=== PATIENT | male | born 1970 | race Caucasian/White ===

== ENCOUNTER → 2020-08-31 16:49 | Outpatient (CLI) | payer OTHER, SELFPAY ==
[2020-08-31 17:00] LABS: Bacteria 0 SEEN /hpf (None Seen); Mucous, Urine 0 SEEN /hpf (<or=2+); Squamous Epithelial Cells - UA 0 SEEN /hpf (0-5)
[2020-08-31 17:20] LABS: Color, Urine Yellow (Yellow); Glucose, Dipstick Normal (Normal); Ketone-Dipstick Negative (Negative); Leukocyte Esterase-Dipstick 25 /ul (Negative); Nitrite-Dipstick Negative (Negative); Occult Blood-Urine 10 /ul (Negative); Protein-Dipstick Negative (Negative); Urine Bilirubin Dipstick Negative (Negative); Urine Clarity Clear (Clear); Urine Urobilinogen Normal (Normal)
[2020-08-31 17:41] LABS: Red Blood Cells-Urine 0-5 SEEN /hpf (0-5); White Blood Cells 0-5 SEEN /hpf (0-5)
== END ==
PROVIDERS: Referring Provider Nurse Practitioner Adult Health; Visit Provider Nurse Practitioner Adult Health
DX: R31.29 Other microscopic hematuria (principal)
CPT/HCPCS: 81001; 87086

== ENCOUNTER 2021-07-10 11:13 | Outpatient (CLI) | payer OTHER, SELFPAY ==
[2021-07-10 13:54] LABS: PSA,Total - Annual Screen 5.08 ng/mL (0.00-4.00)
== END 2021-07-10 23:59 | disposition short-term general hospital (02) ==
PROVIDERS: Visit Provider Urology
DX: Z12.5 Encounter for screening for malignant neoplasm of prostate (principal)
CPT/HCPCS: 36415; 84153; G0103

== ENCOUNTER 2021-08-20 15:57 | Outpatient (CLI) | payer OTHER, SELFPAY ==
[2021-08-20 17:31] LABS: PSA,Total - Annual Screen 1.39 ng/mL (0.00-4.00)
== END 2021-08-20 23:59 | disposition home or self-care (01) ==
LOC: LAB 15:57
PROVIDERS: Referring Provider Urology; Visit Provider Urology
DX: Z12.5 Encounter for screening for malignant neoplasm of prostate (principal)
CPT/HCPCS: 36415; 84153; G0103

== ENCOUNTER 2021-09-03 11:53 | Outpatient (CLI) | payer OTHER, SELFPAY ==
--- NOTE | 2021-09-03 11:59 | EKG12_ITS ---
Test Reason : PREOP Blood Pressure : / mmHG Vent. Rate : 079 BPM Atrial Rate : 079 BPM P-R Int : 176 ms QRS Dur : 098 ms QT Int : 374 ms P-R-T Axes : 036 -66 031 degrees QTc Int : 428 ms Sinus rhythm with frequent Premature ventricular complexes Left axis deviation Left ventricular hypertrophy Inferior infarct , age undetermined Abnormal ECG Confirmed by [place], [place] ([id number]), editorial specialist RACHID MARTINEZ ([id number]) on 09/04/2021 10:19:04 AM Referred By: Tyrel Ko Confirmed By:[place] CHRISTY MD
[2021-09-03 13:35] LABS: Anion Gap 7 (5-15); BUN 11 mg/dL (7-18); BUN/Creat Ratio 13.4 RATIO (10-20); Calcium,Total 8.7 mg/dL (8.5-10.1); Chloride 103 mmol/L (98-107); Creatinine, Serum 0.82 mg/dL (0.70-1.30); EST Glomerular Filtration Rate 104 mL/min (>60); Est Glom Filt Rate - Afr Amer 126 mL/min (>60); Glucose 105 mg/dL (74-106); Potassium 3.9 mmol/L (3.5-5.1); Sodium Level 138 mmol/L (136-145)
[2021-09-03 13:47] LABS: Hematocrit 44.4 % (40-54); Hemoglobin 16.4 g/dL (13.0-16.5); Mean Corp Hgb Conc 36.9 g/dL (32-36); Mean Corpuscular Hgb 31.8 pg (27.0-32.0); Mean Corpuscular Volume 86.2 fL (80-94); Mean Platelet Vol. 9.7 fl (6.2-12.0); Platelet Count 179 K/mm3 (150-450); RBC Distribution Width CV 12.1 % (11.6-14.6); RBC Distribution Width SD 38.5 fl (35.1-43.9); Red Blood Count 5.15 M/mm3 (4.6-6.2); White Blood Count 5.6 K/mm3 (4.4-11.0)
== END 2021-09-03 23:59 | disposition home or self-care (01) ==
LOC: PSN 11:56 → LAB 12:24
PROVIDERS: Referring Provider Urology; Visit Provider Urology
DX: Z01.810 Encounter for preprocedural cardiovascular examination (principal); Z01.812 Encounter for preprocedural laboratory examination
CPT/HCPCS: 36415; 80048; 85027; 87635; 93005; C9803; U0003; U0005

== ENCOUNTER → 2021-10-17 | Outpatient (CLI) | payer OTHER, SELFPAY ==
--- NOTE | 2021-10-17 11:08 | ECHOD_ITS ---
Reason For Study: Arrhythmia Procedure This was a 2D Doppler, Color Flow transthoracic echocardiogram. The exam was of adequate technical quality. Exam performed in department. Left Ventricle Normal LV size. Left ventricular systolic function is lower limits of normal. The estimated ejection fraction is 50 %. No regional wall motion abnormalities noted. Right Ventricle Normal RV size. Normal systolic function. Atria Normal left atrium. Normal right atrium. No doppler evidence for ASD. Mitral Valve There is no mitral annular calcification. Mild diffuse mitral valve thickening. Mild mitral valve prolapse. Mild (1+) mitral valve insufficiency. Tricuspid Valve Normal tricuspid valve. Mild to moderate (1-2+) tricuspid valve insufficiency. Right ventricular systolic pressure estimated to be 32 mmHg. Aortic Valve Trisinus/trileaflet aortic valve. Normal aortic valve. Pulmonic Valve The pulmonic valve is not well visualized. Trivial pulmonic valve insufficiency. Great Vessels Mildly dilated aortic root. Pericardium/Pleural No pericardial effusion. MMode/2D Measurements & Calculations LVIDd: 5.6 cm IVSd: 1.1 cm LVOT diam: 2.5 cm LVIDs: 4.3 cm LVPWd: 1.0 cm LVOT area: 4.8 cm2 RVDd: 3.4 cm FS: 22.4 % Ao root diam: 4.7 cm LAV(MOD-bp): 60.7 ml LA A4 area: 15.2 cm2 LA dimension: 3.7 cm LAV(MOD-bp) Indexed: 35.9 ml/m2 LAV(MOD-sp2): 75.7 ml LAV(MOD-sp4): 37.5 ml RA A4 area: 14.5 cm2 Time Measurements MV dec time: 0.25 sec Doppler Measurements & Calculations MV E max andrea: 47.2 cm/sec Lat Peak E' Andrea: 5.4 cm/sec Med Peak E' Andrea: 5.9 cm/sec MV A max andrea: 72.0 cm/sec E/E' lat: 8.7 E/E' med: 8.0 MV E/A: 0.66 MV V2 max: 84.1 cm/sec MV P1/2t max andrea: 49.8 cm/sec Ao V2 max: 77.8 cm/sec MV max P.8 mmHg MV P1/2t: 101.7 msec Ao max P.4 mmHg MV V2 mean: 44.6 cm/sec MV dec slope: 143.5 cm/sec2 GUILLERMO(V,D): 4.4 cm2 MV mean P.96 mmHg MV V2 VTI: 27.1 cm MVA(P1/2t): 2.2 cm2 LV V1 max: 71.2 cm/sec PA V2 max: 93.6 cm/sec PI end-d andrea: 102.9 cm/sec LV V1 max P.0 mmHg TR max andrea: 269.4 cm/sec TR max P.0 mmHg ECHO/Echo Complete Interpretation Summary Left ventricular systolic function is lower limits of normal. The estimated ejection fraction is 50 %. Mild diffuse mitral valve thickening. Mild mitral valve prolapse. Mild (1+) mitral valve insufficiency. Mild to moderate (1-2+) tricuspid valve insufficiency. Trivial pulmonic valve insufficiency. Mildly dilated aortic root. Comment: 2D echocardiographic and color-flow Doppler images appear compatible w ith a small high perimembranous ventricular septal defect with predominantly left to right flow. Ordering Physician: Mikie Chaudhari Referring Physician: Modesto Conway Performed By: Fernando Russo RCS
== END | disposition home or self-care (01) ==
LOC: CVS 11:07
PROVIDERS: PCP Family Medicine; Referring Provider Internal Medicine Cardiovascular Disease; Visit Provider Internal Medicine Cardiovascular Disease
DX: Z01.810 Encounter for preprocedural cardiovascular examination (principal); I47.1 Supraventricular tachycardia; Z98.890 Other specified postprocedural states; Q21.0 Ventricular septal defect
CPT/HCPCS: 93225; 93226; 93306

== ENCOUNTER → 2021-10-26 | Outpatient (CLI) | payer OTHER, SELFPAY ==
--- NOTE | 2021-10-26 07:54 | STRESSREP ---
Stress Test Report Date: 10-26-2021 Procedure: Pharmacologic stress nuclear imaging study Indications: Ventricular ectopy; wide-complex tachycardia; PSVT/AVNRT status post EPS/RFA; VSD; preoperative cardiovascular evaluation Consent: Per the patient Procedure: The patient underwent pharmacologic (Regadenoson 0.4mg ) evaluation with a peak heart rate of 100 beats per minute (59%predicted maximal heart rate) and a peak blood pressure of 112/70 mmHg. The baseline ECG demonstrated normal sinus rhythm; poor R wave progression; PVCs. The peak pharmacologic ECG demonstrated no obvious ECG changes. There were occasional PVCs pretest, an isolated ventricular couplet during infusion, occasional PVCs in recovery, and a rare ventricular couplet in recovery. There was no complaint of chest discomfort during pharmacologic infusion or recovery. The examination was discontinued secondary to completion of protocol. Impression: 1. Pharmacologic (Regadenoson) evaluation 2. Peak pharmacologic ECG with. 3. There were no cardiac dysrhythmias pretest, during pharmacologic infusion, or recovery. 4. Nuclear images pending Myocardial perfusion imaging study: Technique: The patient was injected with 11.8 millicuries of technetium 99m Cardiolite and subsequently rest SPECT Cardiolite nuclear imaging was obtained in the horizontal long, vertical long, and short axis views. The patient underwent pharmacologic (Regadenoson) evaluation with a peak heart rate of 100 beats per minute (59% percent predicted maximal heart rate) and a peak blood pressure of 112/70 mmHg. The patient was injected with 33.4 millicuries of technetium 99m Cardiolite and subsequently stress SPECT Cardiolite nuclear imaging was obtained in the horizontal long, vertical long, and short axis views. A gated Cardiolite study at peak stress was obtained. Interpretation: Rest and stress SPECT Cardiolite nuclear imaging status post realignment and normalization demonstrate the appearance of subtle diminished tracer uptake near the apical segments without significant change between rest and stress. There is end systolic thickening and brightening. The gated Cardiolite study demonstrates myocardial thickening and inward wall motion. The reported LVEF is 50%. Impression: 1. Rest and stress SPECT Cardiolite nuclear imaging demonstrate myocardial perfusion changes appearing compatible with physiologic apical thinning with no myocardial perfusion changes considered diagnostic for associated stress-induced myocardial ischemia. 2. The gated Cardiolite study reports an LVEF of 50%. This note was generated with [employer] software. It may contain incorrect words, spelling, and punctuation that were not noted in checking the note before signing.
== END | disposition home or self-care (01) ==
LOC: CVS 06:04
PROVIDERS: PCP Family Medicine; Visit Provider Internal Medicine Cardiovascular Disease
DX: I49.3 Ventricular premature depolarization (principal)
CPT/HCPCS: 78452; 93017; A9500; A4216; J2785

== ENCOUNTER 2021-11-06 17:00 | Emergency (ER) | payer OTHER, SELFPAY ==
[2021-11-06 17:00] VITALS: BP 130/80; PULSE 76; RESP 16; TEMP 36.8; O2SAT 98; BMI 27.4
--- NOTE | 2021-11-06 17:18 | CT_ITS ---
STUDY: CT ABDOMEN AND PELVIS WITHOUT CONTRAST REASON FOR EXAM: Male, 51 years old. left flank pain RADIATION DOSAGE (If Supplied By Facility): CTDIvol = ( 6.46 ) mGy, DLP = ( 312.87 ) mGycm TECHNIQUE: Transaxial images were obtained from the dome of the diaphragm to the symphysis pubis without oral contrast, and without intravenous contrast. Sagittal and coronal images were reconstructed. Individualized dose optimization techniques were used for this CT. COMPARISON: None. FINDINGS: Lung bases clear. Unremarkable liver, spleen, pancreas, adrenals, bilateral kidneys, and gallbladder on this unenhanced study. No radiopaque urolithiasis on either side. No CT evidence of acute appendicitis. Bowel loops nonobstructed. No free air or free fluid. No adenopathy. No abdominal aortic aneurysm. Mild vascular calcification. Sections through the pelvis demonstrate mild fat stranding around the urinary bladder, suspicious for acute cystitis. Prostate normal in size. Tiny fat-containing left inguinal hernia. Multilevel lumbar spondylosis and levoscoliosis. CT/Abdomen/Pelvis without Cont IMPRESSION: Findings suspicious for acute cystitis. Clinical correlation recommended. No radiopaque urolithiasis or hydroureteronephrosis on either side. Electronically Signed: Salvatore Delgado MD at 18:38 EDT ,
--- NOTE | 2021-11-06 17:19 | EX.ED.DYSGE1 ---
HPI History of Present Illness Chief Complaint: Flank Pain Detail of Chief Complaint: Left lower abdomen pain Informant: patient Narrative Narrative: Patient presents with left lower abdomen pain that he has been dealing with off and on for years. Patient states that he seen a urologist and he was supposed to have a procedure on September 07 however he failed his preoperative testing and had to have clearance from cardiology which she did. Patient scheduled again to see urology in 2 days. Patient had severe pain to his left lower abdomen yesterday. Patient does have discomfort currently as well. He has had no nausea or vomiting. He does describe some blood in his urine intermittently. He complains of occasional dysuria. Patient does have history of kidney stones. Prior similar symptoms: Yes [facility] Medical History (Updated 11/06/21 @ 19:[address] Ricco Dickson, ) Abnormal EKG Hypoplasia of aortic arch SVT (supraventricular tachycardia) Ventricular ectopy Ventricular septal defect (VSD), perimembranous Home Medications metoprolol succinate 25 mg tablet,extended release 24 hr 25 mg PO DAILY #30 tab 10/26/21 [Rx Last Taken Unknown] phenazopyridine [Pyridium] 200 mg PO TID #10 tab 11/06/21 [Rx Last Taken Unknown] sulfamethoxazole-trimethoprim 1 tab PO BID #14 tablet 11/06/21 [Rx Last Taken Unknown] Allergy/AdvReac Type Severity Reaction Status Date / Time No Known Allergies Allergy Verified 11/06/21 17:03 Surgical History History of nasal surgery History of radiofrequency ablation procedure for cardiac arrhythmia (~01/17/10) History of repair of congenital cleft palate History of right and left heart catheterization (LHC) (~10/31/09) Social History Smoking Status: Never smoker alcohol intake: current details: occasional substance use type: does not use caffeine: Yes Type: carbonated beverages Number of servings: 3 ROS ROS ED Constitutional Constitutional ED: Reports systems reviewed and no addt'l complaints, except as documented; Denies body ache(s), change in weight or chills Eyes Eyes: Denies acute decrease in peripheral vision, change in vision, double vision or loss of vision ENT ENT ED: Reports none; Denies ear pain, lip swelling, loss taste/smell, neck pain, otalgia or sore throat Cardiovascular Cardiovascular: Reports none; Denies abdominal pain, chest pain with activity, leg edema, lightheadedness, palpitations, rapid heart rate or syncope Respiratory/Chest Respiratory/Chest: Reports none; Denies change in mental status, dry cough, dyspnea, hemoptysis, shortness of breath at rest or shortness of breath with exertion Gastrointestinal Gastrointestinal: Reports none and abdominal pain; Denies change in stool character, diarrhea, hematemesis, hematochezia, melena, rectal bleeding or vomiting Genitourinary Genitourinary ED: Reports none; Denies abdominal discomfort, anuria, dysuria, genital pain or polyuria Musculoskeletal Musculoskeletal: Reports none; Denies arthralgias, back pain, difficulty walking, extremity pain, muscle weakness or myalgias Integumentary Reports none; Denies abscess or rash Neurologic Neurologic: Reports none; Denies abnormal gait, confusion, focal weakness, frequent falls, headache(s), loss of vision, numbness, paresthesias, radicular pain, vertigo or weakness Psychiatric Psychiatric: Reports systems reviewed and no addt'l complaints, except as documented and none; Denies behavioral changes, confusion, difficulty concentrating, hallucinations, suicidal ideation, tactile hallucinations or visual hallucinations Endocrine Endocrinology: Denies none, cold intolerance, excessive sweating, fatigue or heat intolerance Hematologic/Lymphatic Hematologic/Lymphatic: Reports none; Denies anemia, easy bleeding or easy bruising Allergic/Immunologic Allergic/Immunologic ED: Denies as per HPI, none, lip swelling, mouth swelling, throat swelling, tongue swelling or hives EXAM Physical Exam Const Vital Signs: 11/06/21 17:00 Temperature 98.2 F Temperature Source Temporal Pulse Rate 76 Respiratory Rate 16 Blood Pressure 130/80 H Blood Pressure Mean 96 Pulse Ox 98 Oxygen Delivery Method Room Air Positive well nourished and well developed General Appearance ED: well developed and NAD HEENT Reports TM's clear and moist mucous membranes normocephalic and atraumatic; Negative for trauma or tenderness Tympanic Membrane ED: Yes TM's clear Eyes PERRL and EOMs intact bilaterally General Eye ED: Negative for pale conjunctiva or scleral icterus Neck no lymphadenopathy, supple and no JVD General: Negative for tenderness Chest Wall inspection of chest normal and palpation of chest normal Chest: Negative for tenderness Resp normal respiratory effort and clear to auscultation bilaterally Effort and Inspection: Negative for respiratory distress or pain with movement Auscultation: Negative for rhonchi, wheezes or diminished lung sounds Cardio regular rate, regular rhythm, S1 normal heart sound, S2 normal heart sound and no murmurs Peripheral Pulses: pulses 2+ throughout GI normal to inspection, nondistended, normoactive bowel sounds, soft to palpation, non-distended and no masses GI Narrative: Tender to palpation over left lower quadrant and suprapubic region. He had some mild guarding. There is no rebound, rigidity, or peritoneal signs. Back/Spine no CVA tenderness and no thoracic nor lumbar tenderness Extremity normal to inspection General Extremety ED: Negative for edema General Extremity: Negative for edema Neuro oriented x3, CN's II-XII intact bilaterally, no sensory deficits noted and gait normal Sensorium / Orientation: awake, alert, oriented to person, oriented to place and oriented to time Motor Exam: strength 5/5 throughout and strength abnormal Psych mental status grossly normal Skin no rashes or lesions noted and no wounds MDM MDM MDM Narrative Medical decision making narrative: Patient refused IV. Lab work was normal. Patient had a urinalysis that showed 10-25 RBCs and 5-10 WBCs and +1 bacteria. Urine culture was sent. CT scan of the abdomen pelvis was unremarkable other than some inflammatory changes around the bladder suspicious for cystitis. I did start patient on Bactrim as well as Pyridium. Patient has an appointment with his urologist in 2 days. Patient advised to return if worsening pain, fever, vomiting, or condition should worsen anyway. Lab Data Attestation: I reviewed the patient's lab results. Labs: Laboratory Results - last 24 hr 11/06/21 11/06/21 11/06/21 17:25 17:25 18:00 WBC 6.2 RBC 4.92 Hgb 15.4 Hct 42.9 MCV 87.2 MCH 31.3 MCHC 35.9 RDW Std Deviation 40.5 RDW Coeff of Maritza 12.9 Plt Count 187 MPV 9.3 Immature Gran % (Auto) 0.300 Neut % (Auto) 56.2 Lymph % (Auto) 30.1 [place] % (Auto) 11.9 H Eos % (Auto) 1.0 Baso % (Auto) 0.5 Absolute Neuts (auto) 3.5 Absolute Lymphs (auto) 1.85 Nucleated RBC % 0 Sodium 142 Potassium 3.8 Chloride 109 H Carbon Dioxide 29.0 Anion Gap 4 L BUN 13 Creatinine 0.94 Estim Creat Clear Calc 70.19 Est GFR (MDRD) Af Amer 107 Est GFR (MDRD) Non-Af 89 BUN/Creatinine Ratio 13.8 Glucose 102 Calcium 9.4 Urine Color Yellow Urine Clarity Clear Urine pH 5.0 Ur Specific Beltrami 1.025 Urine Protein 30 H Urine Glucose (UA) Normal Urine Ketones Negative Urine Occult Blood 150 H Urine Nitrite Negative Urine Bilirubin Negative Urine Urobilinogen Normal Ur Leukocyte Esterase 25 H Urine RBC 10-25 SEEN Urine WBC 5-10 SEEN Ur Squamous Epith Cells 0-5 SEEN Urine Bacteria 1+ Urine Mucus 1+ Radiography Diagnostic Testing: Clinical Impression(s) from Imaging Studies Abdomen/Pelvis CT 11/06/21 17:18 IMPRESSION: Findings suspicious for acute cystitis. Clinical correlation recommended. No radiopaque urolithiasis or hydroureteronephrosis on either side. Electronically Signed: Salvatore Delgado MD at 18:38 EDT , Discharge Plan Triage Chief Complaint: Flank Pain ED Provider: Ricco Dickson Dx/Rx/DC Orders Clinical Impression: Cystitis, Abdominal pain Instructions: Abdominal Pain, ED Bladder Infection, Male (Adult) Prescriptions: New phenazopyridine [Pyridium] 200 MG tablet 200 mg PO TID Qty: 10 RF: 0 sulfamethoxazole-trimethoprim [sulfamethoxazole-trimethoprim] 1 TABLET tablet 1 tab PO BID Qty: 14 RF: 0 No Action metoprolol succinate 25 mg tablet extended release 24 hr 25 mg PO DAILY Qty: 30 RF: 12 Primary Care Provider: Modesto Conway Referrals: Tyrel Ko MD [STAFF PHYSICIAN] - 2 Days Modesto Conway MD [Primary Care Provider] - Disposition Disposition: Home, Self Care
[2021-11-06 17:39] LABS: Absolute Lymphocyte Count 1.85 X10^3/uL (0.83-4.51); Absolute Neutrophil Count 3.5 X10^3/uL (2.0-7.7); Basophil# 0.03 X10^3/uL; Basophil% 0.5 % (0-1); Eosinophil# 0.06 X10^3/uL; Hematocrit 42.9 % (40-54); Hemoglobin 15.4 g/dL (13.0-16.5); Lymphocyte # 1.85 X10^3/ul (0.83-4.51); Lymphocyte % 30.1 % (19-41); Mean Corp Hgb Conc 35.9 g/dL (32-36); Mean Corpuscular Hgb 31.3 pg (27.0-32.0); Mean Corpuscular Volume 87.2 fL (80-94); Mean Platelet Vol. 9.3 fl (6.2-12.0); Monocyte# 0.73 X10^3/uL; Monocyte% 11.9 % (0-10); NRBC Flagged by Analyzer 0 % (0-5); Neutrophil # 3.46 X10^3/uL (2.7-7.7); Neutrophil % 56.2 % (47-70); Platelet Count 187 K/mm3 (150-450); RBC Distribution Width CV 12.9 % (11.6-14.6); RBC Distribution Width SD 40.5 fl (35.1-43.9); Red Blood Count 4.92 M/mm3 (4.6-6.2); White Blood Count 6.2 K/mm3 (4.4-11.0)
[2021-11-06 17:51] LABS: Anion Gap 4 (5-15); BUN 13 mg/dL (7-18); BUN/Creat Ratio 13.8 RATIO (10-20); Calcium,Total 9.4 mg/dL (8.5-10.1); Chloride 109 mmol/L (98-107); Creatinine, Serum 0.94 mg/dL (0.70-1.30); EST Glomerular Filtration Rate 89 mL/min (>60); Est Glom Filt Rate - Afr Amer 107 mL/min (>60); Estimated Creatinine Clearance 70.19 ml/min; Glucose 102 mg/dL (74-106); Potassium 3.8 mmol/L (3.5-5.1); Sodium Level 142 mmol/L (136-145)
[2021-11-06 18:14] LABS: Color, Urine Yellow (Yellow); Glucose, Dipstick Normal (Normal); Ketone-Dipstick Negative (Negative); Leukocyte Esterase-Dipstick 25 /ul (Negative); Nitrite-Dipstick Negative (Negative); Occult Blood-Urine 150 /ul (Negative); Protein-Dipstick 30 mg/dl (Negative); Specific Gravity, Urine 1.025 (1.002-1.030); Urine Bilirubin Dipstick Negative (Negative); Urine Clarity Clear (Clear); Urine Urobilinogen Normal (Normal)
[2021-11-06 18:22] LABS: Bacteria 1+ /hpf (None Seen); Red Blood Cells-Urine 10-25 SEEN /hpf (0-5); Squamous Epithelial Cells - UA 0-5 SEEN /hpf (0-5); White Blood Cells 5-10 SEEN /hpf (0-5)
[2021-11-06 18:23] LABS: Mucous, Urine 1+ /hpf (<or=2+)
[2021-11-06 18:59] VITALS: BP 138/88; PULSE 88; RESP 17; O2SAT 97
[2021-11-06] MEDS: Smz/Tmp Ds Tablet 1 TABLET PO (19:04)
[2021-11-06] MEDS: Phenazopyridine 95 MG Tablet 190 MG PO (19:04)
== END 2021-11-06 19:09 | disposition home or self-care (01) ==
PROVIDERS: Emergency Provider Emergency Medicine; PCP Family Medicine; Visit Provider Emergency Medicine
DX: N30.91 Cystitis, unspecified with hematuria (principal); Z87.442 Personal history of urinary calculi
CPT/HCPCS: 74176; 80048; 81001; 85025; 87086; 99283

== ENCOUNTER 2021-11-14 13:20 | Day surgery (SDC) | payer OTHER, SELFPAY ==
[2021-11-14] MEDS: Lactated Ringers 1,000 ML 15 ML IV (13:35)
[2021-11-14 13:47] VITALS: BP 118/70; PULSE 53; RESP 18; TEMP 36.9; O2SAT 100; BMI 25.4
--- NOTE | 2021-11-14 14:57 | PCM.HP.STD ---
HPI - General HPI Narrative HUY CHOWDHURY, is a 51 M who presents for a TURBT for a large reddish mass, sessile in the bladder [facility] Medical History (Updated 11/14/21 @ 14:[address] Tyrel Ko MD) Abnormal EKG Alcohol use Cardiology follow-up encounter History of CHF (congestive heart failure) History of echocardiogram History of Holter monitoring History of irregular heartbeat History of stress test Hypertension Hypoplasia of aortic arch Non-smoker Shortness of breath on exertion SVT (supraventricular tachycardia) Ventricular ectopy Ventricular septal defect (VSD), perimembranous Home Medications metoprolol succinate 25 mg tablet,extended release 24 hr 25 mg PO DAILY #30 tab 10/26/21 [Rx Last Taken 11/14/21] ciprofloxacin HCl [Cipro] 500 mg PO BID #6 tab 11/14/21 [Rx Last Taken Unknown] oxycodone-acetaminophen 1 tab PO Q4H PRN 7 Days #20 tab 11/14/21 [Rx Last Taken Unknown] Allergy/AdvReac Type Severity Reaction Status Date / Time sulfamethoxazole Allergy Rash Verified 11/14/21 13:44 [From Sulfamethoxazole-Trimethoprim] trimethoprim Allergy Rash Verified 11/14/21 13:44 [From Sulfamethoxazole-Trimethoprim] Surgical History (Updated 11/13/21 @ 10:52 by Blank Velasquez) History of nasal surgery History of radiofrequency ablation procedure for cardiac arrhythmia (~01/17/10) History of repair of congenital cleft palate History of right and left heart catheterization (LHC) (~10/31/09) Social History Smoking Status: Never smoker alcohol intake: current details: occasional substance use type: does not use caffeine: Yes Type: carbonated beverages Number of servings: 3 Vital Signs Vital Signs Vital Signs: 11/14/21 13:47 Temperature 98.4 F Temperature Source Temporal Pulse Rate 53 L Respiratory Rate 18 Respiratory Pattern Normal Blood Pressure 118/70 Blood Pressure Mean 86 Blood Pressure Source Monitor Blood Pressure Position Semi-Fowlers Blood Pressure Location Left Arm Pulse Ox 100 Oxygen Delivery Method Room Air Weight Weight: 63 kg Body Mass Index (BMI) 25.4
--- NOTE | 2021-11-14 14:57 | PCM.DC ---
Discharge Instructions Diet Discharge Diet: No restrictions Activity Discharge Activity: Return to Normal Activity and May Not Drive (while taking narcotic pain medications.) Dressing / Incision Call your doctor if you observe: Fever of 101 or Higher Follow Up Care Please Follow Up With: Tyrel Ko MD When: Call [phone] for an appointment Test Results: Test results from this visit will be discussed in further detail at your follow-up appointment, if applicable. Discharge Plan Admission Primary Reason for Your Visit: TURBT Attending Provider: Tyrel Ko Primary Care Provider: Modesto Conway Discharge Orders/Prescriptions Prescriptions: New ciprofloxacin HCl [Cipro] 500 mg tablet 500 mg PO BID Qty: 6 RF: 0 oxycodone-acetaminophen 5-325 mg tablet 1 tab PO Q4H PRN (Reason: pain) 7 Days Qty: 20 RF: 0 Continued metoprolol succinate 25 mg tablet extended release 24 hr 25 mg PO DAILY Qty: 30 RF: 12 Referrals / Follow Up: Tyrel Ko MD [STAFF PHYSICIAN] - Modesto Conway MD [Primary Care Provider] - Disposition Disposition (needs filled in before D/C Order can be placed): Home, Self Care
[2021-11-14] MEDS: Cefazolin 2 GM in 0.9% Normal Saline 100 ML IV (15:04)
--- NOTE | 2021-11-14 15:46 | OP.PCM_ITS ---
Report of Operation Date of Procedure: 11/14/21 Pre-Operative Diagnosis: Reddish flat area in the back of the bladder pretty ex tensive Post-Operative Diagnosis: The same Surgery/Procedure Performed:: Transurethral resection of the bladder large Description of Surgical Findings:: Indication is a 51-year-old male has chronic pain in the bladder on cystoscopy was found to have like a reddish flat area in the black of the bladder concerning for carcinoma in situ today again taken to surgery to resect this area and cauterize a whole area extensively. Patient was taken back to the operating room at the smooth induction of general anesthesia he was placed in dorsolithotomy position. Went of the bladder with the cystoscope I then identified the right ureteral orifice and then the left ureter orifice the ureter left ureteral orifice appeared to been resected back and open in the back of the bladder looks pretty reddish very friable looking mucosa was certainly not normal little biopsies were taken to get tissue without cauterization and then using the cautery and resectoscope and I cauterized extensively in the back of the bladder to try to get the whole area cauterized completely extremely friable bladder if he does not have cancer place carcinoma in situ or may have interstitial cystitis would be the other differential diagnosis. After asked extensively cauterizing this area then I was able to control hemostasis but I will have him sent home with a catheter 20 Vincentian catheter let the bladder heal we will see him next week to remove the catheter and review the tissue report. Surgeon: joseph Type of Anesthesia: General Drains: 20 fr ramos Admit VTE Documentation VTE Present on Admission: No VTE Mechan Device Prophylaxis: SCD's VTE Pharm Prophylaxis ordered?: No
--- NOTE | 2021-11-14 15:50 | BLA_PTH ---
PATIENT: HUY CHOWDHURY [place] [facility] [place][id number] AGE/SX: 51/M ROOM: RE11/14/[address]: Dr. Tyrel Ko MD : [id number] BED: DIS: 11/14/2021 SPEC #: [id number] RECD: 11/14/21 16:57 STATUS: LUCIO ZAMORA #: [id number] KRAIG: 11/14/21 15:[address]: Tyrel Ko DEPT: SURGICAL PATHOLOGY RECD BY: Tran Fernández ENTERED: 11/15/21 07:34 SP TYPE: BLADDER BX OTHR DR: Dr. Modesto Conway MD Tissues: Urinary bladder, NOS Procedures: Surgery Specimen Level IV HEADER OPERATION: Cysto, transurethral resection bladder, [employer] PRE-OP DIAGNOSIS: Bladder mass TISSUE SUBMITTED: Bladder biopsy MICROSCOPIC DIAGNOSIS Bladder, biopsy: Fragments of urothelial mucosa with chronic inflammation and granulation tissue reaction. Negative for malignancy. See comment. SJ:rajeev 11/16/2021 COMMENT Epithelium is denuded in most of the specimen. Clinical correlation and appropriate follow up are necessary. MICROSCOPIC DESCRIPTION Slides are reviewed. GROSS DESCRIPTION Received in fixative is one container labeled with the patient's name and designated bladder biopsy. The specimen consists of three irregular fragments of light shahid soft tissue that in aggregate measure 0.5 x 0.2 x 0.1 cm. The specimen is totally submitted in one cassette. / SUSAN:rajeev 11/15/2021 TC:3 CPT: 64763
[2021-11-14 16:00] VITALS: BP 118/70; BP 147/98; PULSE 110; RESP 18; TEMP 36.4; O2SAT 100
[2021-11-14] MEDS: Ketorolac 15 MG/ML Vial IV (16:08)
[2021-11-14 16:15] VITALS: BP 118/70; BP 162/98; PULSE 95; RESP 16; O2SAT 99
[2021-11-14 16:30] VITALS: BP 118/70; BP 140/76; PULSE 90; RESP 16; O2SAT 97
[2021-11-14 16:51] VITALS: BP 118/70; BP 143/93; PULSE 86; RESP 16; TEMP 36.7; O2SAT 96
[2021-11-14 17:15] VITALS: BP 118/70; BP 143/87; PULSE 91; RESP 16; TEMP 36.7; O2SAT 98
[2021-11-14] MEDS: oxyCODONE 5 MG Tablet PO (17:28)
== END 2021-11-14 17:57 | disposition home or self-care (01) ==
LOC: SDC 13:21 → AC 13:22
PROVIDERS: PCP Family Medicine; Referring Provider Urology; Visit Provider Urology
PROC: 0TBB8ZZ Excision of Bladder, Via Natural or Artificial Opening Endoscopic (ICD-10-PCS; CPT 52601; principal; 2021-11-14 15:40)
DX: N41.0 Acute prostatitis (principal); R31.21 Asymptomatic microscopic hematuria; D30.3 Benign neoplasm of bladder; I10 Essential (primary) hypertension; G89.29 Other chronic pain
CPT/HCPCS: 52601; 00914; 88305; J7120; J2405

== ENCOUNTER → 2022-12-30 | Outpatient (CLI) | payer OTHER, SELFPAY ==
[2022-12-30 17:17] LABS: PSA,Total - Annual Screen 1.94 ng/mL (0.00-4.00)
== END | disposition home or self-care (01) ==
PROVIDERS: PCP Family Medicine; Referring Provider Urology; Visit Provider Urology
DX: Z12.5 Encounter for screening for malignant neoplasm of prostate (principal); N40.1 Benign prostatic hyperplasia with lower urinary tract symptoms
CPT/HCPCS: 36415; 84153; 87086; G0103

== ENCOUNTER → 2023-07-29 | Outpatient (CLI) | payer OTHER, SELFPAY ==
[2023-07-29 16:08] LABS: Hematocrit 46.4 % (40-54); Hemoglobin 16.5 g/dL (13.0-16.5); Mean Corp Hgb Conc 35.6 g/dL (32-36); Mean Corpuscular Hgb 30.9 pg (27.0-32.0); Mean Corpuscular Volume 86.9 fL (80-94); Mean Platelet Vol. 9.6 fl (6.2-12.0); Platelet Count 182 K/mm3 (150-450); RBC Distribution Width CV 13.4 % (11.6-14.6); RBC Distribution Width SD 41.7 fl (35.1-43.9); Red Blood Count 5.34 M/mm3 (4.6-6.2); White Blood Count 5.8 K/mm3 (4.4-11.0)
[2023-07-29 17:20] LABS: ALB/GLOB Ratio 0.9 RATIO (0.9-2.4); AST(SGOT) 20 U/L (15-37); Alanine Aminotransfer ALT/SGPT 24 U/L (16-61); Albumin, Serum 3.8 g/dL (3.2-5.0); Alkaline Phosphatase 82 U/L (45-117); Anion Gap 4 (5-15); BUN 10 mg/dL (7-18); BUN/Creat Ratio 10.8 RATIO (10-20); Calcium,Total 9.3 mg/dL (8.5-10.1); Chloride 108 mmol/L (98-107); Creatinine, Serum 0.92 mg/dL (0.70-1.30); EST Glomerular Filtration Rate 90 mL/min (>60); Est Glom Filt Rate - Afr Amer 109 mL/min (>60); Globulin 4.1 g/dL (2.2-4.2); Glucose 90 mg/dL (74-106); Magnesium 2.3 mg/dL (1.6-2.6); Potassium 3.8 mmol/L (3.5-5.1); Protein, Total 7.9 g/dL (6.4-8.2); Sodium Level 142 mmol/L (136-145); Thyroid Stim Hormone (TSH) 2.03 uIU/mL (0.358-3.74)
--- OUTSIDE RECORDS SUMMARY | 2023-07-29 19:59 | XMS RPT_ITS | CCD ---
Author Name Unknown Address [address] [place] [address] Organization [facility] Care Team Providers Care Combined Rail Operator Name Role Phone Louis Conway Primary Care Provider [phone] Unavailable Primary Care Provider UnavailROXANNE Ardon Attending Unavailable Louis Conway MD Unavailable Stefani RIVER, Dr. Sarah ([facility]) Unavailable [facility] Surgeons Unavailable [facility] Unavailable [phone] [facility] Cardiology Unavailable [phone] Dr. Mayco Lima DO Unavailable Dr. Jarret Thomas MD Unavailable Yousuf COMPUTER SECURITY COORDINATOR, Cha Betancur Unavailable Unavailable Doug RIVER, Ron Fernando Unavailable Mo COMPUTER SECURITY COORDINATOR, Janis Unavailable Unavailable Love RUSHING, Mee Fernando Unavailable Unavaila ble Rohit COMPUTER SECURITY COORDINATOR, Julieth Unavailable Unavailable Meng COMPUTER SECURITY COORDINATOR, Edgar Unavailable Unavailable Tony PANDEY, Julieth Walls Unavailable Aki COMPUTER SECURITY COORDINATOR, Lily Castanon Unavailable Unavailab yessenia Nunez COMPUTER SECURITY COORDINATOR, Dipti Unavailable Unavailab le Sonia COMPUTER SECURITY COORDINATOR, Jenny Unavailable Unavailabl e Bina COMPUTER SECURITY COORDINATOR, Anju Unavailable Unavailable Unavailable Unavailable CARLOS PRETTY MD Admitting Unavailable CARLOS PRETTY MD Primary Care Unavailable CARLOS PRETTY MD Attending Unavailable LOUIS CONWAY Consulting Unavailable LOUIS CONWAY Referring Unavailable PROVIDER, UNKNOWN Consulting Unavailable PROVIDER, UNKNOWN Consulting Unavailable PROVIDER, UNKNOWN Consulting Unavailable GUILLE FREIRE Admitting Unavailable GUILLE FREIRE Primary Care Unavailable GUILLE FREIRE Attending Unavailable LOUIS CONWAY Consulting Unavailable PROVIDER, UNKNOWN Consulting Unavailable PROVIDER, UNKNOWN Consulting Unavailable PROVIDER, UNKNOWN Consulting Unavailable Allergies Allergy Classification Reported Allergen(s) Allergy Type Date of Onset Reaction(s) Facility (1 source) Sulfonamides (Antibiotic) Drug Allergy 04-08-2023 Rash [facility] Work Phone: (1 source) Sulfonamides (Antibiotic) Drug allergy (disorder) [facility] Repository Medications Current Medications Medication Drug Class(es) Dates Sig (Normalized) Sig (Original) acetaminophen 325 mg / HYDROcodone bitartrate 5 mg oral tablet (1 source) Opioid Agonist Start: 12-08-2020 End: 12-13-2020 HYDROcodone-acetami nophen (NORCO) 5-325 MG per tablet Indications: Post-op pain Take 1 tablet by mouth every 6 hours as needed for Pain for up to 5 days. Intended supply: 5 days. Take lowest dose possible to manage pain 20 tablet 0 12/08/2020 12/13/2020 Active ALPRAZolam 0.25 mg disintegrating oral tablet (1 source) Benzodiazepine Start: 12-08-2020 ALPRAZolam (NIRAVAM) dissolvable tablet 0.25 mg calcium chloride 0.0014 meq/ml / potassium chloride 0.004 meq/ml / sodium chloride 0.103 meq/ml / sodium lactate 0.028 meq/ml injectable solution (1 source) Start: 12-08-2020 lactated ringers infusion cefdinir 300 mg oral capsule (1 source) Cephalosporin Antibacterial Start: 12-08-2020 End: 12-18-2020 take 1 capsule by mouth twice daily cefdinir (OMNICEF) 300 MG capsule Take 1 capsule by mouth 2 times daily for 10 days 20 capsule 0 12/08/2020 12/18/2020 Active 1 ml diphenhydrAMINE hydrochloride 50 mg/ml cartridge (1 source) Histamine-1 Receptor Antagonist Start: 12-08-2020 End: 12-08-2020 diphenhydrAMINE (BENADRYL) injection 12.5 mg 2 ml fentaNYL 0.05 mg/ml injection (2 sources) Opioid Agonist Start: 12-08-2020 fentaNYL (SUBLIMAZE) injection 50 mcg Completed/Discontinued Medications Medication Drug Class(es) Dates Sig (Normalized) Sig (Original) acetaminophen 500 mg oral tablet (1 source) Start: 12-08-2020 End: 12-08-2020 acetaminophen (TYLENOL) tablet 1,000 mg 24 hr alfuzosin hydrochloride 10 mg extended release oral tablet (6 sources) alpha-Adrenergic Abner Start: 03-08-2023 take 1 tablet by mouth once alfuzosin SR (UROXATRAL) 10 mg 24 hr tablet Take 1 tablet by mouth every afternoon. 0 03/08/2023 Active Problems Active Problems Problem Classification Problem Date Documented Date Episodic/Chronic Acute bronchitis (10 sources) Acute bronchitis; Translations: [Acute bronchitis, unspecified] 11-05-2019 Episodic Cardiac and circulatory congenital anomalies (1 source) Ventricular septal defect; Translations: [Ventricular septal defect] Onset: 08-18-2009 08-18-2009 Chronic Cardiac dysrhythmias (20 sources) Cardiac arrhythmia; Translations: [Cardiac arrhythmia, unspecified] 08-20-2022 Chronic Chronic obstructive pulmonary disease and bronchiectasis (10 sources) Bronchitis; Translations: [Bronchitis, not specified as acute or chronic] 11-23-2019 Episodic Contraceptive and procreative management (20 sources) Patient encounter status; Translations: [Encounter for sterilization] Onset: 01-26-2010 01-26-2010 Episodic Genitourinary symptoms and ill-defined conditions (11 sources) Increased frequency of urination; Translations: [Frequency of micturition] 04-08-2023 Episodic Heart valve disorders (15 sources) Heart murmur; Translations: [Cardiac murmur, unspecified] 08-20-2022 Episodic Hyperplasia of prostate (20 sources) Benign prostatic hypertrophy with outflow obstruction; Translations: [Benign prostatic hyperplasia with lower urinary tract symptoms] Onset: 05-25-2009 05-25-2009 Chronic Immunizations and screening for infectious disease (10 sources) Requires diphtheria, tetanus and pertussis vaccination; Translations: [Encounter for immunization] 08-20-2022 Episodic Malaise and fatigue (10 sources) Fatigue; Translations: [Other fatigue] 08-20-2022 Episodic Other acquired deformities (15 sources) Scoliosis deformity of spine; Translations: [Scoliosis, unspecified] 08-20-2022 Chronic Other diseases of bladder and urethra (2 sources) Bladder neck obstruction; Translations: [Bladder-neck obstruction] Onset: 05-25-2009 04-08-2023 Chronic Other nervous system disorders (1 source) Postoperative pain ; Translations: [Other acute postprocedural pain] Episodic Other nutritional; endocrine; and metabolic disorders (10 sources) Overweight in adulthood with body mass index of 25 or more but less than 30; Translations: [Body mass index (BMI) 27.0-27.9, adult] 08-20-2022 Episodic Other skin disorders (20 sources) Skin lesion; Translations: [Disorder of the skin and subcutaneous tissue, unspecified] 12-01-2019 Episodic Other skin disorders (10 sources) Skin tag; Translations: [Other hypertrophic disorders of the skin] 11-23-2019 Episodic Residual codes; unclassified (10 sources) Influenza vaccination declined; Translations: [Immunization not carried out because of patient refusal] 08-20-2022 Episodic Unclassified (5 sources) Follow up for chronic condition - The patient is here for follow-up of other condition(s) (BPH). The patient always takes the prescribed medications. No side effects noted. The patient has an active lifestyle but no regular exercise program. The patient's out of office blood pressure checks occur rarely. The patient states that there is no recent angina or dyspnea and they do not have headaches. Note for Chronic condition follow-up : medication has helped, rarely has any pain. reviewed by [facility] 05-05-2020 Unclassified (5 sources) Follow up for chronic condition - The patient is here for follow-up of other condition(s) (Urinary frequency). The patient always takes the prescribed medications. No side effects noted. Note for Chronic condition follow-up : Taking tamsulosin. Unsure how much improvment he has seen. Will had good days and bad days. reviewed by [facility] 11-05-2019 Past or Other Problems Problem Classification Problem Date Documented Date Episodic/Chronic Other lower respiratory disease (1 source) Dyspnea; Translations: [Dyspnea, unspecified] Onset: 09-21-2009 09-21-2009 Episodic Unclassified (5 sources) Well adult male - The patient feels well with no complaints. The patient has a balanced diet. The patient does not exercise. The patient sleeps 6 hours per night. Note for Well adult male : reviewed by B 08-20-2022 Unclassified (5 sources) Frequent urination - Has had frequent urination for the past 12 years and has been getting worse. Asking for urology referral. 08-22-2020 Unclassified (5 sources) Skin Lesion - The skin lesion appeared rapidly and has been occurring for weeks. It has been increasing in size. The lesion is characterized as brown. The lesion is located on the upper extremity (right shoulder). Note for Skin lesion : reviewed by [facility] 11-24-2019 Unclassified (5 sources) Cold Symptoms - Symptoms include runny nose, dry cough and productive cough, but do not include ear pain, sore throat, fever, chills, general malaise or headache. The onset was gradual 3 week(s) ago. The symptoms occur constantly. The patient describes this as moderate in severity and unchanged. Current treatment includes non-prescription cold medication. Risk factors do not include smoking. The patient has not been exposed to an individual with a cough, an individual with an upper respiratory infection, an individual with similar symptoms, an individual with strep or secondhand smoke. Patient denies history of seasonal allergies, recurrent sinusitis, recurrent strep pharyngitis, asthma, tonsillectomy or recurrent ear infections. Note for Upper respiratory infection : leaving for [place] next weekend 2019 Unclassified (5 sources) Skin Lesion - The skin lesion appeared gradually and has been occurring for 6 months. It has been increasing in size. The lesion is characterized as brown. Note for Skin lesion : Located on left shoulder.Also has a large skin tag R axilla that gets painful and itchy 02-23-2019 Unclassified (5 sources) Urinary frequency - Urinary frequency for several months and getting worse. No pain. Gets up a couple of times at night. No increased thirst. 02-10-2018 Unclassified (5 sources) Back pain - The course has been increasing. The pain radiates to the right thigh (and leg will go numb.). Note for Back pain : Pt born with Scoliosis and has just recently flared up. Has been seeing Dr. Hollingsworth who gave him some Meloxicam but pt rarely uses that. He is here today because he would like to see Portrait Consultant. X-rays done per Dr. Hollingsworth 07/21/17. Pain is in entire back - all the way down the Spinal cord. ANything/ any movment seems to aggraate the pain. reviewed by [facility] 10-10-2017 Unclassified (5 sources) Cold Symptoms - Symptoms include nasal congestion, runny nose, productive cough, fever (hasn't checked temp), chills and general malaise, but do not include ear pain or sore throat. The onset was gradual 4 day(s) ago. The symptoms occur constantly. The patient describes this as moderate in severity and worsening. Current treatment includes non-prescription cold medication (nyquil). The patient has not been exposed to an individual with similar symptoms. Patient denies history of seasonal allergies, recurrent sinusitis, recurrent strep pharyngitis, asthma, tonsillectomy or recurrent ear infections. 08-31-2014 Unclassified (5 sources) Fatigue - The onset of the fatigue has been gradual and has been occurring in an intermittent pattern for 2 months. The course has been increasing. The fatigue occurs all the time. The symptoms have been associated with chest pain (This morning) and excessive sleeping. Note for Fatigue : Sx are not present daily, feels he sleeps well. weight and appetite are intact.Unrelated he has had an ablation in the past and is due for cadriology follow up with Dr Heck at [facility] 04-12-2014 Results Test Name Value Interpretation Reference Range Facil ity Vital Signs Date Time Vital Sign Value Performing Clinician Faci lity 04-08-2023 12:59-0400 Body height 157.5 cm [employer] PA-C Work Phone: [facility] 04-08-2023 12:59-0400 Body weight 67.04 kg [employer] PA-C Work Phone: [facility] 04-08-2023 12:59-0400 Diastolic blood pressure 82 mm[Hg] Roxanne Hills PA-C Work Phone: [facility] 04-08-2023 12:59-0400 Heart rate 91 /min Roxanne Hills PA-C Work Phone: [facility] 04-08-2023 12:59-0400 SaO2% (BldA) [Mass fraction] 97 % Roxanne Hills PA-C Work Phone: [facility] 04-08-2023 12:59-0400 Systolic blood pressure 112 mm[Hg] Roxanne Hills PA-C Work Phone: [facility] 08-20-2022 13:15-0400 Body weight 68.95 kg Edgar Fan LPN [facility] 08-20-2022 13:15-0400 Diastolic blood pressure 82 mm[Hg] Edgar Fan LPN [facility]. Encounters Encounter Date Encounter Type Care Provider Facility Start: 06-19-2023 End: 06-19-2023 Telephone follow-up Louis Conway MD [facility] Start: 06-18-2023 End: 06-18-2023 Emergency department patient visit CARLOS RIVER [facility] Start: 04-08-2023 End: 04-08-2023 ambulatory ROXANNE HILLS Facility:[facility] Start: 04-08-2023 End: 04-08-2023 Patient encounter procedure Roxanne Hills PA-C Work Phone: Urology Procedures Date Procedure Procedure Detail Performing Clinician Start: 04-08-2023 Urnls dip stick/tabl et rgnt auto w/o microscopy Roxanne Hills PA-C Work Phone: Start: 01-24-2023 End: 01-24-2023 Screening colonoscopy Edgar Fan LPN Plan of Treatment Date Care Activity Detail Author Start: 08-20-2032 Urine microalbumin profile DTaP,Tdap,Td Vaccine (2 - Td or Tdap) [facility] Start: 02-07-2023 Influenza vaccination Influenza Vaccine (#1) [facility] Start: 06-09-2022 Depression Assessment Depression Assessment [facility] Start: 02-07-2021 Influenza vaccination [facility] Work Phone: Start: 12-14-2020 End: 12-14-2020 Patient encounter procedure 12/14/2020 Office Visit Otolaryngology Ilir Holm MD [address] [place] [address] [phone] [facility] Start: 12-08-2020 End: 12-08-2020 Patient encounter procedure 12/08/2020 Appointment General Surgery Ilir Holm MD [address] [place] [address] [phone] [facility] General Surgery Start: 06-27-2019 Lipid 1996 panel - Serum or Plasma Lipid Screening [facility] Start: 2018 Screening for malignant neoplasm of colon Colon cancer screen colonoscopy [facility] Work Phone: Start: 2018 Shingles Vaccine (1 of 2) Shingles Vaccine (1 of 2) [facility] Work Phone: Start: 2018 Shingrix Vaccine (1 of 2) Shingrix Vaccine (1 of 2) [facility] Start: 06-27-2017 Diabetes Screening Diabetes Screening [facility] Start: 2013 Cologuard (FIT-DNA) Cologuard (FIT-DNA) [facility] Start: 2013 Colonoscopy Colonoscopy [facility] Start: 2013 Colorectal Cancer Screening Colorectal Cancer Screening [facility] Start: [address] Colonography [facility] Start: 2013 Fecal Occult Blood Fecal Occult Blood [facility] Start: 2013 Sigmoidoscopy Sigmoidoscopy [facility] Start: 2008 Diabetes screen Diabetes screen [facility] Work Phone: Start: 2008 Lipid panel Lipid screen [facility] Work Phone: Start: 08-20-1987 DTaP/Tdap/Td vaccine (1 - Tdap) DTaP/Tdap/Td vaccine (1 - Tdap) [facility] Work Phone: Start: 1986 Hepatitis C Screening Hepatitis C Screening [facility] Start: 1986 HIV Screening HIV Screening [facility] Start: 08-20-1983 HIV screening HIV screen [facility] Work Phone: Start: 1980 COVID-19 Vaccine (1) COVID-19 Vaccine (1) [facility] Work Phone: Start: 02-19-1969 Covid-19 Vaccine (#1) Covid-19 Vaccine (#1) [facility] Start: 1968 Hepatitis B Vaccine (1 of 3 - 3-dose series) Hepatitis B Vaccine (1 of 3 - 3-dose series) [facility] Start: 1968 Hepatitis C screening Hepatitis C screen [facility] Work Phone: Blood glucose - POCT [facility] Work Phone: Immunizations Immunization Date Immunization Notes Care Provider Fa gina 08-20-2022 tetanus toxoid, redu germaine diphtheria toxoid, and acellular pertussis vaccine, adsorbed Louis Conway MD [facility] Phone: [facility] Payers Date Payer Category Payer Unknown [id number] 2020 Unknown [id number] 1968 Unknown [id number] 1968 Unknown [id number] Social History Date Type Detail Facility Start: 12-04-2020 End: 04-08-2023 Tobacco smoking status NHIS Never smoker [facility] Work Phone: Start: 12-04-2020 End: 04-08-2023 Tobacco use and exposure Never used [facility] Start: 12-04-2020 End: 04-08-2023 Alcohol intake Current drinker of alcohol (finding) [facility] Work Phone: Start: 12-04-2020 End: 04-08-2023 [facility] Start: 12-04-2020 [facility] Comment [facility] Work Phone: Start: 1970 Sex Assigned At Not on file [facility] Work Phone: Exposure to SARS-CoV -2 (event) Not sure [facility] Start: 04-08-2023 Tobacco use panel [facility] National Score (1-100), lower number is lower risk 80 [facility] Start: 04-08-2023 Alcohol Comment daily beer [facility] Alcohol Use: Alcohol Use: ; Occasional alcohol use. [employer] Current Work/Study Status: Current Work/Study Status: ; Full-time. [employer] Exercise History: Exercise Histo ry: ; Moderate. 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 [employer]; [employer] Tobacco Use: Tobacco Use: ; N ever smoker. 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 Author Type: Physician Sap Architect Type: Progress Notes Filed: 04/08/2023 7:46 PM Note Text: [facility] NEW PATIENT CLINIC NOTE SERVICE DATE: 04/08/2023 SERVICE TIME: 1:29 PM NAME: Linden Wood CHIEF COMPLAINT: 2nd Opinion for Urinary Symptoms HISTORY OF PRESENT ILLNESS: Linden Wood is a 52 year old male presenting as an established patient for 2nd Opinion for Urinary Symptoms The patient reports he has pain with a full bladder and recently saw Dr. Ko for a Cystoscopy and had a bladder tumor removed That showed chronic inflammation and bladder and bladder had tran irritation Given he already has a Urologist with Dr. Ko who knows his situation and recommend he continue his follow ups with him. LUTS: DYSURIA: yes URGENCY: Yes FREQUENCY:7 per day NOCTURIA: 2 per night STRAINING TO VOID: No EMPTIES COMPLETELY: Yes UTI: No GROSS HEMATURIA: no UA DIPSTICK POSITIVE ONLY: no Other symptoms: LABS: No results found for: TESTOST No results found for: TESTFREE No results found for: PSA Hematocrit (%) Date Value 06/27/2014 45.2 01/17/2010 44.9 09/20/2009 44.1 No results found for: PSA Creatinine Date Value Ref Range Status 06/27/2014 0.91 0.70 - 1.40 mg/dL Final 01/17/2010 0.87 0.70 - 1.40 mg/dL Final 11/23/2009 0.86 0.70 - 1.40 mg/dL Final 09/20/2009 0.90 0.70 - 1.40 mg/dL Final MEDICATIONS: alfuzosin SR (UROXATRAL) 10 mg 24 hr tablet Take 1 tablet by mouth every afternoon. metoprolol succinate (TOPROL XL ORAL) Take by mouth once daily. PAST MEDICAL HISTORY: PAST MEDICAL HISTORY Diagnosis Date Cleft palate Enlarged prostate Essential hypertension Heart murmur PAST SURGICAL HISTORY: PAST SURGICAL HISTORY Procedure Laterality Date LAP HERNIA REPAIR W/MESH REPAIR PALATE TRANSURETHRAL ELEC-SURG PROSTATECTOM 11/14/2021 [facility] FAMILY HISTORY: FAMILY HISTORY Problem Relation Age of Onset other (interstitial cystitis) Sister SOCIAL HISTORY: Social Connections: Not on file REVIEW OF SYSTEMS: GENERAL: No fever, chills, weight loss, or fatigue. ENMT: Negative CARDIOVASCULAR:NO CHEST PAIN, PALPITATIONS, ANKLE EDEMA RESPIRATORY: No chronic cough, wheezing, dyspnea, hemoptysis. GENITOURINARY: SEE HPI MUSCULOSKELETAL:NO CHRONIC BACK PAIN, ARTHRITIS, CHRONIC NECK PAIN SKIN: NO VARICOSE VEINS, RASH, ABNORMAL ITCHING HEME/LYMPH/IMMUNE:Negative for prolonged bleeding, bruising easily or swollen nodes NEUROLOGICAL: NO HEADACHES, NUMBNESS, SEIZURES, STROKE DIABETES: no All other systems reviewed and are negative PHYSICAL EXAMINATION: Blood pressure 112/82, pulse 91, height 157.5 cm (5' 2 ), weight 67 kg (147 lb 12.8 oz), SpO2 97 %. GENERAL: WNL nutrition, no deformities, healthy appearing NEURO: Awake, alert and oriented x 3 and Normal gait PSYCH: No signs of depression, anxiety, or agitation ENMT (Ear, Nose, Mouth, Throat): No masses, adenopathy, icterus. Thyroid nonpalpable RESP: NL effort, no retractions or purse-lip breathing. CV: No extremity swelling, varices, edema, pallor, erythema GASTROINTESTINAL: Soft, nontender, nondistended, no masses. HERNIAS: None SKIN: No rash, lesions No palpable lymphadenopathy MUSCULOSKELETAL: Extremities normal. No deformities, edema, clubbing or skin discoloration. PROBLEM LIST REVIEW: Yes LABS: Results for orders placed or performed in visit on 04/08/23 UA DIP, URINE (POC) Result Value Ref Range GLUCOSE UA (POCT) Negative Negative mg/dL BILIRUBIN UA (POCT) Negative Negative KETONE UA (POCT) Negative Negative mg/dL SPECIFIC GRAVITY UA (POCT) 1.020 1.005 - 1.030 HEMOGLOBIN/BLOOD UA (POCT) Trace-intact (A) Negative PH UA (POCT) 5.5 4.5 - 8.0 PROTEIN UA (POCT) Negative Negative mg/dL UROBILINOGEN UA (POCT) 0.2 Normal E.U./dL NITRITE UA (POCT) Negative Negative LEUKOCYTES UA (POCT) Negative Negative COLOR UA (POCT) Yellow CLARITY UA (POCT) Clear PROCEDURES: PVR: 0 ml IMAGING: [facility] - in [facility] database IMPRESSION/PLAN: 52 year old male with 1. Urinary frequency - ICD9: 788.41, ICD10: R35.0 (primary diagnosis) 2. 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 Ko I spent a total of 30 minutes on the date of the service which included preparing to see the patient, face to face patient care, completing clinical documentation, obtaining and/or reviewing separately obtained history, performing a medically appropriate examination, counseling and educating the patient/family/caregiver, ordering medications, tests, or procedures, and care coordination. Roxanne Hills, KATELYNS, MT, PA-C [facility] Progress note 04-08-2023 Note Date & Type Note Facility 04-08-2023 Note HNO ID: [id number] Author: JAREK Macias Laurie Service: ? Author Type: ? Type: Progress Notes Filed: 04/08/2023 7:46 PM Note Text: Patient's post-void bladder scan: 0 ML. Adriane Macias MA [facility] History of Present illness Narrative 04-08-2023 Roxanne Hills PA-C - 04/08/2023 1:28 PM GRACIETHiJAREK win Laurie - 04/08/2023 1:05 PM EDT Note Date & Type Note Facility 04-08-2023 History of Presen t illness Narrative Images from the original note were not included. [facility], [facility] [facility] NEW PATIENT CLINIC NOTE SERVICE DATE: 04/08/2023 SERVICE TIME: 1:29 PM NAME: Linden Wood CHIEF COMPLAINT: 2nd Opinion for Urinary Symptoms HISTORY OF PRESENT ILLNESS: Linden Wood is a 52 year old male presenting as an established patient for 2nd Opinion for Urinary Symptoms The patient reports he has pain with a full bladder and recently saw Dr. Ko for a Cystoscopy and had a bladder tumor removed That showed chronic inflammation and bladder and bladder had tran irritation Given he already has a Urologist with Dr. Ko who knows his situation and recommend he continue his follow ups with him. LUTS: DYSURIA: yes URGENCY: Yes FREQUENCY:7 per day NOCTURIA: 2 per night STRAINING TO VOID: No EMPTIES COMPLETELY: Yes UTI: No GROSS HEMATURIA: no UA DIPSTICK POSITIVE ONLY: no Other symptoms: LABS: No results found for: TESTOST No results found for: TESTFREE No results found for: PSA Hematocrit (%) Date Value 06/27/2014 45.2 01/17/2010 44.9 09/20/2009 44.1 No results found for: PSA Creatinine Date Value Ref Range Status 06/27/2014 0.91 0.70 - 1.40 mg/dL Final 01/17/2010 0.87 0.70 - 1.40 mg/dL Final 11/23/2009 0.86 0.70 - 1.40 mg/dL Final 09/20/2009 0.90 0.70 - 1.40 mg/dL Final MEDICATIONS: alfuzosin SR (UROXATRAL) 10 mg 24 hr tablet Take 1 tablet by mouth every afternoon. metoprolol succinate (TOPROL XL ORAL) Take by mouth once daily. PAST MEDICAL HISTORY: PAST MEDICAL HISTORY Diagnosis Date Cleft palate Enlarged prostate Essential hypertension Heart murmur PAST SURGICAL HISTORY: PAST SURGICAL HISTORY Procedure Laterality Date LAP HERNIA REPAIR W/MESH REPAIR PALATE TRANSURETHRAL ELEC-SURG PROSTATECTOM 11/14/2021 [facility] FAMILY HISTORY: FAMILY HISTORY Problem Relation Age of Onset other (interstitial cystitis) Sister SOCIAL HISTORY: Social Connections: Not on file REVIEW OF SYSTEMS: GENERAL: No fever, chills, weight loss, or fatigue. ENMT: Negative CARDIOVASCULAR:NO CHEST PAIN, PALPITATIONS, ANKLE EDEMA RESPIRATORY: No chronic cough, wheezing, dyspnea, hemoptysis. GENITOURINARY: SEE HPI MUSCULOSKELETAL:NO CHRONIC BACK PAIN, ARTHRITIS, CHRONIC NECK PAIN SKIN: NO VARICOSE VEINS, RASH, ABNORMAL ITCHING HEME/LYMPH/IMMUNE:Negative for prolonged bleeding, bruising easily or swollen nodes NEUROLOGICAL: NO HEADACHES, NUMBNESS, SEIZURES, STROKE DIABETES: no All other systems reviewed and are negative PHYSICAL EXAMINATION: Blood pressure 112/82, pulse 91, height 157.5 cm (5' 2 ), weight 67 kg (147 lb 12.8 oz), SpO2 97 %. GENERAL: WNL nutrition, no deformities, healthy appearing NEURO: Awake, alert and oriented x 3 and Normal gait PSYCH: No signs of depression, anxiety, or agitation ENMT (Ear, Nose, Mouth, Throat): No masses, adenopathy, icterus. Thyroid nonpalpable RESP: NL effort, no retractions or purse-lip breathing. CV: No extremity swelling, varices, edema, pallor, erythema GASTROINTESTINAL: Soft, nontender, nondistended, no masses. HERNIAS: None SKIN: No rash, lesions No palpable lymphadenopathy MUSCULOSKELETAL: Extremities normal. No deformities, edema, clubbing or skin discoloration. PROBLEM LIST REVIEW: Yes LABS: Results for orders placed or performed in visit on 04/08/23 UA DIP, URINE (POC) Result Value Ref Range GLUCOSE UA (POCT) Negative Negative mg/dL BILIRUBIN UA (POCT) Negative Negative KETONE UA (POCT) Negative Negative mg/dL SPECIFIC GRAVITY UA (POCT) 1.020 1.005 - 1.030 HEMOGLOBIN/BLOOD UA (POCT) Trace-intact (A) Negative PH UA (POCT) 5.5 4.5 - 8.0 PROTEIN UA (POCT) Negative Negative mg/dL UROBILINOGEN UA (POCT) 0.2 Normal E.U./dL NITRITE UA (POCT) Negative Negative LEUKOCYTES UA (POCT) Negative Negative COLOR UA (POCT) Yellow CLARITY UA (POCT) Clear PROCEDURES: PVR: 0 ml IMAGING: CT - in [facility] database IMPRESSION/PLAN: 52 year old male with 1. Urinary frequency - ICD9: 788.41, ICD10: R35.0 (primary diagnosis) 2. 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 Stefani Alcantara spent a total of 30 minutes on the date of the service which included preparing to see the patient, face to face patient care, completing clinical documentation, obtaining and/or reviewing separately obtained history, performing a medically appropriate examination, counseling and educating the patient/family/caregiver, ordering medications, tests, or procedures, and care coordination. LILIANA Caceres, AKUA, KATHERIN Patient's post-void bladder scan: 0 ML. Adriane Macias MA documented in this encounter [facility] Discharge instructions 12-08-2020 Instructions Note Date & Type Note Facility 12-08-2020 Hospital Discharg e instructions Ilir Holm MD - 12/08/2020 Nasal and Sinus Surgery At Home Instructions The following instructions will help you know what to expect in the days following your surgery. Do not hesitate to call if you have questions or concerns. Please have the following items available at your home/recovery residence [place] nasal spray bottle for post-surgical nasal irrigations Afrin (to be used ONLY if you have a nosebleed) 4 x 4 gauze and paper tape Tylenol (to be used if necessary after you are out of alternative pain medication) Activities You may shower this evening. Avoid sneezing or blowing your nose for 2 weeks after surgery (gently sniff rather than blow, if you do sneeze, do so with your mouth open). Activities should be limited for 1 week after surgery. Do not lift heavy objects (greater than 10 pounds) for 1 week after surgery. Walking is strongly encouraged. Most patients do not return to work for about 5 to 7 days after surgery; however some return sooner, and others may need more time. The level of pain and frustration caused by the nasal congestion and blockage may be different from patient to patient. Diet A normal diet may be resumed. Fever A low-grade fever, less than 101 F is not uncommon for 2 to 3 days after surgery. If fever continues or is higher than 101 F, call your physician. Use Tylenol to control the Fever. Pain Control Many patients do not have much pain after nasal surgery, but everyone is different. Most patients feel pressure and congestion. For mild pain, acetaminophen (Tylenol ) will do. We will prescribe stronger pain medication for after surgery. Drink plenty of water as these stronger pain medications can be constipating. Also take the prescribed stool softeners on a regular basis while taking narcotic pain medications. Avoid taking aspirin, ibuprofen (Advil , Motrin ), naproxen (Aleve , Naprosyn ), and other nonsteroidal anti-inflammatory medications (NSAIDs) for a week following nasal surgery. These drugs can increase bleeding. Pain should lessen with time. If pain increases, call the office. Drainage You can expect to have bloody nasal drainage after nasal or sinus surgery. To catch this drainage and to help avoid continuous nose wiping, we usually put a gauze mustache dressing under the nose and tape it to the cheeks for as long as the drainage continues. BLEEDING: Some blood in the nasal drainage after surgery is to be expected. This may be dark red or brown. If the nose is bleeding freely or you think the amount is too much, call the office immediately. Avoid nose blowing and try to sneeze with your mouth open if needed. Sleeping with your head elevated will also help prevent bleeding and reduce congestion. If you have a nosebleed, you can try spraying oxymetazoline spray (Afrin ) in the nose. Care of the Nose NASAL SALINE IRRIGATION: THIS IS VERY IMPORTANT - After sinus surgery, we like to have the nose irrigated with ocean saline spray. This will help rinse the blood clots and mucous from the nose. Please START IRRIGATIONS THE DAY AFTER SURGERY. Never use your fingers to clear blockages in your nose . How to Irrigate Fill the [employer] Sinus Rinse bottle with the room temperature saline solution (see below for recipe). Gently insert the tip into one nostril and squeeze. Keep your head down to prevent water from going back down into your throat. Use about one half of the bottle per nostril. Do this for each nostril two to three times daily for the first month. Follow up Your appointment for follow up after your surgery should have been scheduled at the time of your surgery. If not, call the office for an appointment scheduled for 1-2 weeks after the date of your surgery. Call the office or GO TO THE EMERGENCY ROOM if you have: Excessive pain, swelling, bleeding or drainage Shortness of breath or difficulty breathing Persistent nausea and vomiting Fever that continues or is higher than 101 F Neck stiffness (cannot touch your chin to your chest) Confusion Worsening headaches Clear drainage dripping from your nose like a leaky faucet (note that this may happen and is normal up to 30 minutes following saline sprays) Salty or metallic taste (note that you may experience a salty taste which is normal up to 30 minutes following saline sprays) Do not hesitate to call if you have any questions or concerns: Offices of Dr. Ilir Holm [phone] during normal business hours If there is an after-hours EMERGENCY related to your procedure please present to the nearest emergency room or [facility] ([facility] ER if possible. documented in this encounter [facility] Work Phone: History of Present illness Narrative 12-08-2020 Cata Dewey RN - 12/08/2020 1:43 PM Cata Calvo RN - 12/08/2020 1:28 PM Cata Calvo RN - 12/08/2020 12:00 PM Cata Calvo RN - 12/08/2020 11:09 AM EDT Note Date & Type Note Facility 12-08-2020 History of Present illness Narrative Patient discharged home with family. All vital signs returned to baseline and pain level controlled. Monitoring completed and IV removed. Family at bedside assisted patient to dress. Patient has all belongings including wallet, cell phone, clothing, prescriptions. Patient taken off unit via wheelchair by RN to family awaiting in vehicle. Patient and family educated and provided all discharge instructions including post-op care, medications, and follow-up. All verbalize understanding. Questions encouraged and answered. Family brought to bedside and updated. Patient admitted to [facility] recovery from OR via cart. ID verified. Monitoring initiated with all audible alarms set. JANITORIAL ASSISTANT handoff received at bedside with all questions answered. All vital signs stable at this time. Family updated via messenger. documented in this encounter [facility] Work Phone: History of Past illness Narrative 03-16-2010 Note Date & Type Note Facility documented as of this encounter (statuses as of 04/09/2023) [facility] Evaluation note Note Date & Type Note Facility documented in this encounter [facility] Work Phone: Evaluation note Note Date & Type Note Facility documented in this encounter [facility] Advance Directives Latest Code Status on File Code Status Date Activated Date Inactivated Comments Full Code 12/08/2020 8:33 AM Summary Purpose Family History No Family History Records FoundNo Family History Records FoundNo Family History Records FoundNo Family History Records Found Additional Source Comments Ordered Prescriptions (unrec ognized section and content) Scheduled Active and Recently Administ ered Medications (unrecognized section and content) Continuous Medication Order 12/06/2020 12/07/2020 12/08/2020 lactated ringers infusion Intravenous, at 50 mL/hr, CONTINUOUS, Starting on Fri12/08/20 at 0900, Upon admission to sameday - please start iv if patient does not have iv access. Use 500ml NS for patients on dialysis., Pre-op (day of surgery) 901 ([facility] ider: Ronda Ross RN) PRN Medication Order 12/06/2020 12/07/2020 12/08/2020 0.9 % sodium chloride bolus 500 mL (7.11 mL/kg), Intravenous, at 250 mL/hr, Administer over 2 Hours, ONCE PRN, Nausea, Starting on Fri12/08/20 at 0900, For 1 dose, PACU only 0.9 % sodium chloride infusion 25 mL, Intravenous, at 100 mL/hr, PRN, If patient receiving piggyback infusions without ordered maintenance IV fluids or with frequent/long duration piggyback infusions, Starting on Fri12/08/20 at 0833, Administer at the same rate as the piggyback being infused., Pre-op (day of surgery) ALPRAZolam (NIRAVAM) dissolvable tablet 0.25 mg 0.25 mg, Oral, PRN, Anxiety, Starting on Fri12/08/20 at 0833, Pre-op (day of surgery) diphenhydrAMINE (BENADRYL) injection 12.5 mg 12.5 mg, Intravenous, ONCE PRN, Itching, Starting on Fri12/08/20 at 0900, For 1 dose, for use Sameday and, PACU only fentaNYL (SUBLIMAZE) injection 25 mcg 25 mcg, Intravenous, EVERY 5 MIN PRN, Pain Moderate (4-6), Starting on Fri12/08/20 at 0900, For 3 doses, Phase I and Phase II- Initial therapy for moderate pain (4-6). Restricted to a 50 minute time frame starting when the patient can verbally state their pain score. If after 2 doses the pain score does not decrease by more than one point, then go to secondary medication. Ifsecondary medications are utilized, do not return to initial therapy medications. SDS and, PACU only 1119 (Given - Provid er: Cata Dewey RN) fentaNYL (SUBLIMAZE) injection 50 mcg 50 mcg, Intravenous, EVERY 5 MIN PRN, Pain Severe (7-10), Starting on Fri12/08/20 at 0900, For 3 doses, Phase I or Phase II- Initial therapy for severe pain (7-10). Restricted to a 50 minute time frame starting when the patient can verbally state their pain score. If after 2 doses the pain score does not decrease by more than one point, then go to secondary medication. If secondary medications are utilized, do not return to initial therapy medications.Sameday and, PACU only hydrALAZINE (APRESOLINE) injection 5 mg 5 mg, Intravenous, EVERY 10 MIN PRN, High Blood Pressure, Starting on Fri12/08/20 at 0900, PRN for SBP > 160 for 2 consecutive measurements, and if one of the following conditions is met: 1) If IV labetolol is ineffective. 2) If HR is under 60. 3) If patient has heart block, COPD or asthma. If both labetalol and hydralazine ineffective, notify anesthesiologist. for use Sameday and, PACU only HYDROmorphone (DILAUDID) injection 0.25 mg 0.25 mg, Intravenous, EVERY 5 MIN PRN, Pain Moderate (4-6), Starting on Fri12/08/20 at 0900, For 4 doses, Phase I - Secondary therapy to be used after initial therapy medication doses are ineffective (pain score does not decrease by more than 1 point). If secondary medications are utilized, do not return to initial therapy medications., PACU only HYDROmorphone (DILAUDID) injection 0.5 mg 0.5 mg, Intravenous, EVERY 5 MIN PRN, Pain Severe (7-10), Starting on Fri12/08/20 at 0900, For 4 doses, Phase I - Secondary therapy to be used after initial therapy medication doses are ineffective (pain score does not decrease by more than 1 point). If secondary medications are utilized, do not return to initial therapy medications., PACU only labetalol (NORMODYNE;TRANDATE) injection 5 mg 5 mg, Intravenous, EVERY 10 MIN PRN, High Blood Pressure, Starting on Fri12/08/20 at 0900, PRN for SBP >160 for 2 consecutive measurements, if HR is 60 or greater. If beta abner is contraindicated (HR less than 60, heart block, COPD or asthma) use hydralazine IV order. for use Sameday and, PACU only lidocaine PF 1 % injection 1 mL 1 mL, Intradermal, ONCE PRN, IV start, Starting on Fri12/08/20 at 0833, For 1 dose, Pre-op (day of surgery) meperidine (DEMEROL) injection 12.5 mg 12.5 mg, Intravenous, EVERY 5 MIN PRN, Shivering, , Starting on Fri12/08/20 at 0900, May give every 5 minutes to max of 50mg. for use Sameday and, PACU only ondansetron (ZOFRAN) injection 4 mg 4 mg, Intravenous, ONCE PRN, Nausea, Starting on Fri12/08/20 at 0900, For 1 dose, Initial antiemetic therapy. For use sameday and, PACU only oxyCODONE (ROXICODONE) immediate release tablet 5 mg (COMPLETED) 5 mg, Oral, PRN, Pain Moderate (4-6), Starting on Fri12/08/20 at 0900, For 1 dose, PHASE II, PACU only 1200 (Given - Provid er: Cata Dewey RN) promethazine (PHENERGAN) injection 6.25 mg 6.25 mg, Intravenous, ONCE PRN, Nausea, Starting on Fri12/08/20 at 0900, For 1 dose, Caution if used IV:Check IV site for infiltrate prior to and during administration. Secondary antiemetic therapy. For use sameday and For IV administration, dilute to 10ml with normal saline. Must be administered over at least 10 minutes., PACU only sodium chloride flush 0.9 % injection 5-40 mL 5-40 mL, Intravenous, PRN, Line Care, Starting on Fri12/08/20 at 0833, For Line Patency: Peripheral IV = 5 mL; Midline or Central Line = 10 mL/lumen. If following IV push medication, administer flush at same rate as the IV push. Flush volume is determined by type of infusion therapy being given. For non-viscous solutions use: Peripheral IV = 5 mL Midline or Central Line = 10 mL/lumen For viscous solutions (i.e. blood components, parenteral nutrition, contrast media, or after obtaining blood sample) use: Peripheral IV = 10 mL Midline or Central Line = 20 mL/lumen, Pre-op (day of surgery) (unrecognized sect ion and content) No Status Records FoundNo Status Records FoundNo Status Records FoundNo Status Records Found INFORMATION SOURCE (unrecogn ized section and content) DATE CREATED AUTHOR AUTHOR'S ORGANIZ ATPANFILO 08/16/2022 [facility] DATE CREATED AUTHOR AUTHOR'S ORGANIZ ATION 04/09/2023 [facility] DATE CREATED AUTHOR AUTHOR'S ORGANIZ ATION 06/19/2023 [facility] Source Comments (unrecognize d section and content) In the event this informatio n is protected by the Federal Confidentiality of Alcohol and Drug Abuse Patient Records regulations: The Federal rules restrict any use of the information to criminally investigate or prosecute any alcohol or drug abuse patient.[facility] Reason for Visit (unrecogniz ed section and content) FOR RECORDS PERTAINING TO PATIENTS WHO ARE OR HAVE BEEN ENROLLED IN A CHEMICAL DEPENDENCY/SUBSTANCEABUSE PROGRAM, SOME INFORMATION MAY BE OMITTED. This clinical summary was aggregated from multiple sources. Caution should be exercised in using it in the provision of clinical care. This summary normalizes information from multiple sources, and as a consequence, information in this document may materially change the coding, format and clinical context of patient data. In addition, data may be omitted in some cases. CLINICAL DECISIONS SHOULD BE BASED ON THE PRIMARY CLINICAL RECORDS. [facility]. provides no warranty or guarantee of the accuracy or completeness of information in this document.
== END | disposition home or self-care (01) ==
LOC: LAB 14:57
PROVIDERS: PCP Family Medicine; Referring Provider Physician Assistant Medical; Visit Provider Physician Assistant Medical
DX: R00.0 Tachycardia, unspecified (principal); Q21.0 Ventricular septal defect; I49.3 Ventricular premature depolarization; I47.10 Supraventricular tachycardia, unspecified; Z98.890 Other specified postprocedural states
CPT/HCPCS: 36415; 80053; 83735; 84443; 85027

== ENCOUNTER 2023-10-29 13:58 | Observation (INO) | payer OTHER, SELFPAY ==
--- NOTE | 2023-10-23 13:02 | EKG12_ITS ---
Test Reason : PRE OP Blood Pressure : / mmHG Vent. Rate : 078 BPM Atrial Rate : 078 BPM P-R Int : 176 ms QRS Dur : 112 ms QT Int : 398 ms P-R-T Axes : 017 -67 007 degrees QTc Int : 453 ms Normal sinus rhythm Left anterior fascicular block Left ventricular hypertrophy Abnormal ECG Confirmed by Sukumar Candelario ([id number]), editorial intern RACHID MARTINEZ ([id number]) on 10/27/2023 10:05:24 AM Referred By: Tyrel Ko Confirmed By:Sukumar Candelario
[2023-10-23 13:56] LABS: Hematocrit 45.8 % (40-54); Hemoglobin 16.3 g/dL (13.0-16.5); Mean Corp Hgb Conc 35.6 g/dL (32-36); Mean Corpuscular Hgb 31.3 pg (27.0-32.0); Mean Corpuscular Volume 87.9 fL (80-94); Mean Platelet Vol. 9.1 fl (6.2-12.0); Platelet Count 158 K/mm3 (150-450); RBC Distribution Width CV 13.2 % (11.6-14.6); RBC Distribution Width SD 42.5 fl (35.1-43.9); Red Blood Count 5.21 M/mm3 (4.6-6.2); White Blood Count 6.5 K/mm3 (4.4-11.0)
[2023-10-23 14:24] LABS: Anion Gap 7 (5-15); BUN 12 mg/dL (7-18); BUN/Creat Ratio 13.2 RATIO (10-20); Calcium,Total 9.2 mg/dL (8.5-10.1); Chloride 106 mmol/L (98-107); Creatinine, Serum 0.91 mg/dL (0.70-1.30); EST Glomerular Filtration Rate 92 mL/min (>60); Est Glom Filt Rate - Afr Amer 111 mL/min (>60); Glucose 106 mg/dL (74-106); Potassium 3.5 mmol/L (3.5-5.1); Sodium Level 139 mmol/L (136-145)
[2023-10-29] VITALS (11 sets, daily range): BP systolic 103–151; BP diastolic 68–88; PULSE 70–93; RESP 16–18; TEMP 36.2–37; O2SAT 93–99; BMI 25.4
[2023-10-29] MEDS: Lactated Ringers 1,000 ML 15 ML IV (10:42)
--- NOTE | 2023-10-29 12:23 | PCM.HP.STD ---
HPI - General General Date of Service: 10/29/23 Chief Complaint: Weak bladder flow and overactive bladder HPI Narrative HUY CHOWDHURY, is a 53 M who presents for a transurethral incision of the bladder neck up I use the Olympus button to open up the bladder neck because he does have a very weak flow and obstructive flow pattern but he does have a very overactive bladder so we are also can inject the bladder with 100 units of Botox [facility] Medical History (Updated 10/21/23 @ 10:01 by Guera Middleton) Prostate disease Alcohol use Non-smoker Shortness of breath on exertion History of Holter monitoring History of stress test History of echocardiogram Hypertension Cardiology follow-up encounter History of CHF (congestive heart failure) History of irregular heartbeat Ventricular ectopy Abnormal EKG Ventricular septal defect (VSD), perimembranous Hypoplasia of aortic arch SVT (supraventricular tachycardia) Home Medications ?Medication ?Instructions ?Recorded ?Last Taken ?Type alfuzosin 10 mg tablet,extended 10 mg PO DAILY 12/27/22 Unknown History release 24 hr metoprolol succinate 25 mg 25 mg PO DAILY #30 tabs 08/11/23 10/29/23 06:30 Rx tablet,extended release 24 hr amoxicillin 500 mg tablet 2,000 mg PO .COMPLEX PRN PRN 10/21/23 Unknown History Allergy/AdvReac Type Severity Reaction Status Date / Time sulfamethoxazole (From Allergy Rash Verified 10/29/23 10:38 Sulfamethoxazole-Trimethoprim) trimethoprim (From Allergy Rash Verified 10/29/23 10:38 Sulfamethoxazole-Trimethoprim) Sulfa (Sulfonamide AdvReac Intermediate Rash Verified 10/29/23 10:38 Antibiotics) Surgical History (Updated 10/21/23 @ 10:01 by Guera Middleton) History of cardiac catheterization History of colonoscopy History of nasal surgery History of right and left heart catheterization (LHC) (~10/31/09) History of repair of congenital cleft palate History of radiofrequency ablation procedure for cardiac arrhythmia (~01/17/10) Social History Smoking Status: Never smoker alcohol intake: current details: occasional substance use type: does not use caffeine: Yes Type: carbonated beverages Number of servings: 3 Vital Signs Vital Signs Vital Signs: 10/29/23 10:42 10/29/23 10:42 Temperature 98.6 F Temperature Source Temporal Pulse Rate 77 Respiratory Rate 16 Respiratory Pattern Normal Blood Pressure 103/82 H Blood Pressure Mean 89 Blood Pressure Source Monitor Blood Pressure Position Semi-Fowlers Blood Pressure Location Right Arm Pulse Ox 99 Oxygen Delivery Method Room Air Weight Weight: 63.1 kg Body Mass Index (BMI) 25.4 Results Lab / Micro Data 10/23/23 13:29 10/23/23 13:29
[2023-10-29] MEDS: Cefazolin 2 GM in 0.9% Normal Saline (100mL Bag) 100 ML IV (12:37)
[2023-10-29] MEDS: Botulinum Toxin A 100 Units Vial IJ (12:57)
--- NOTE | 2023-10-29 13:26 | DCINST_ITS ---
Discharge Instructions Diet Discharge Diet: No restrictions Activity Discharge Activity: Return to Normal Activity and May Not Drive (while taking narcotic pain medications.) Dressing / Incision Call your doctor if you observe: Fever of 101 or Higher Catheter: Shah to leg bag and Shah to large bag Drain: [place] Follow Up Care Please Follow Up With: Tyrel Ko MD When: Call [phone] for an appointment Test Results: Test results from this visit will be discussed in further detail at your follow- up appointment, if applicable. Discharge Plan Admission Primary Reason for Your Visit: Resection of the prostate with Olympus and Botox injection Attending Provider: Tyrel Ko Primary Care Provider: Modesto Conway Instructions Print Language: Telugu Discharge Orders/Prescriptions Prescriptions: Continued alfuzosin 10 mg tablet extended release 24 hr 10 mg PO DAILY Patient Comments: TAKE ONE TABLET BY MOUTH EVERY DAY amoxicillin 500 mg tablet 2,000 mg PO .COMPLEX PRN (Reason: PRN) Rx Instructions: 2,000 mg orally 1 hour prior to dental procedure; PRN; metoprolol succinate 25 mg tablet extended release 24 hr 25 mg PO DAILY Qty: 30 12RF Other Ambulatory Orders: 12 Lead EKG (Routine) Timeframe: 20231023 Location: None Selected Ordered By: Dr. Lakhwinder Gordon Referrals / Follow Up: Tyrel Ko MD [Med Staff - Active Staff] - Modesto Conway MD [Primary Care Provider] - Disposition Disposition (needs filled in before D/C Order can be placed): Home, Self Care
--- NOTE | 2023-10-29 13:26 | PCM.OPRPT ---
Report of Operation Date of Procedure: 10/29/23 Pre-Operative Diagnosis: BPH with obstruction and overactive bladder Post-Operative Diagnosis: The same Surgery/Procedure Performed:: Transurethral section of the prostate and injection of Botox in the bladder 100 units Description of Surgical Findings:: Patient was taken back to the operating room at this with induction of anesthesia he was placed in dorsolithotomy position. The penis intact close were prepped and draped in usual sterile fashion. I then used the 24 Georgian sheath and the Olympus button to do the resection of the prostate basically shaved open the prostate open he had a very short length with obstructive prostate from the root to the bladder neck this is opened up all the way I did a flow test had a nice wide open flow we then went back into the bladder and we prepared to 100 units of Botox and we injected the bladder with 100 units of Botox and 10 sites in the back of the bladder. Anatomy was a a small bit obstructive prostate that we did the lump Olympus resectoscope scope and used that to shave open the prostate with the button vaporizer and after doing the resection of the prostate then we injected the both the bladder with Botox. He will be kept overnight for observation we put a 20 Georgian catheter at the end and he will go home with a catheter for a week to let it heal. Surgeon: Tyrel Ko Type of Anesthesia: General Drains: 20 fr ramos Admit VTE Documentation VTE Present on Admission: No VTE Mechan Device Prophylaxis: SCD's VTE Pharm Prophylaxis ordered?: No
[2023-10-29] MEDS: 0.9% Normal Saline (1000mL) 1,000 ML 125 ML IV ×2 (15:16→22:32)
[2023-10-29] MEDS: Ketorolac 15 MG/ML Vial IV ×2 (15:27→22:33)
[2023-10-29] MEDS: 0.9% Saline Lock 10 ML Syringe IV (15:27)
[2023-10-29] MEDS: Acetaminophen 325 MG Tablet PO (20:00)
[2023-10-29] MEDS: Ciprofloxacin 400 MG/200 ML BAG 200 MG IV (22:32)
[2023-10-29] MEDS: Docusate Sodium 100 MG Capsule 200 MG PO (22:34)
[2023-10-30] VITALS (7 sets, daily range): BP systolic 129–142; BP diastolic 67–87; PULSE 62–83; RESP 16–18; TEMP 36.3–37.2; O2SAT 96–99
[2023-10-30] MEDS: 0.9% Normal Saline (1000mL) 1,000 ML 125 ML IV (07:22)
[2023-10-30 07:26] LABS: Absolute Lymphocyte Count 0.85 X10^3/uL (0.83-4.51); Absolute Neutrophil Count 3.2 X10^3/uL (2.0-7.7); Basophil# 0.03 X10^3/uL; Basophil% 0.6 % (0-1); Eosinophil# 0.06 X10^3/uL; Eosinophils% 1.3 % (0-5); Hematocrit 39.3 % (40-54); Hemoglobin 13.7 g/dL (13.0-16.5); Lymphocyte # 0.85 X10^3/ul (0.83-4.51); Lymphocyte % 18.2 % (19-41); Mean Corp Hgb Conc 34.9 g/dL (32-36); Mean Corpuscular Hgb 31.2 pg (27.0-32.0); Mean Corpuscular Volume 89.5 fL (80-94); Mean Platelet Vol. 8.9 fl (6.2-12.0); Monocyte# 0.53 X10^3/uL; Monocyte% 11.3 % (0-10); NRBC Flagged by Analyzer 0 % (0-5); Neutrophil % 68.4 % (47-70); Platelet Count 126 K/mm3 (150-450); RBC Distribution Width CV 13.1 % (11.6-14.6); RBC Distribution Width SD 43.2 fl (35.1-43.9); Red Blood Count 4.39 M/mm3 (4.6-6.2); White Blood Count 4.7 K/mm3 (4.4-11.0)
--- NOTE | 2023-10-30 07:27 | PCM.PN.GU ---
Subjective Subjective Urine still fairly bloody for now we will keep him in the hospital continue with IV fluids flush catheter as needed once urine clears up then we will send him home. Objective Data Objective Data Vital Signs: Vital Signs Temp Pulse Resp BP Pulse Ox O2 Del Method 97.6 F L 65 16 131/78 H 97 Room Air 10/30/23 04:35 10/30/23 04:35 10/30/23 04:35 10/30/23 04:35 10/30/23 04:35 10/30/23 04:35 Oxygen Delivery Method Room Air Weight: 63.1 kg Body Mass Index (BMI) 25.4 Intake & Output: Intake and Output for Last 24 Hours 10/28/23 10/29/23 10/30/23 23:59 23:59 23:59 Intake Total 1518.33 / 2118.33 2567.25 / 2567.25 Output Total 250 / 1350 2100 / 2100 Balance 1268.33 / 768.33 467.25 / 467.25 Lab / Micro Data 10/23/23 13:29 10/23/23 13:29
--- NOTE | 2023-10-30 08:50 | CASEMGMT ---
KRISTAN CM into pt room, pt niece at bedside. Pt reports he is I in ADL's, lives with his niece who can assist at home. Pt has had a catheter 2 years ago and feels comfortable with the care of one. Pt denies any homegoing needs at this time.
[2023-10-30] MEDS: Tamsulosin HCl 0.4 MG Capsule PO (08:54)
[2023-10-30] MEDS: Docusate Sodium 100 MG Capsule 200 MG PO ×2 (08:54→22:16)
[2023-10-30] MEDS: Ciprofloxacin 400 MG/200 ML BAG 200 MG IV (08:57)
[2023-10-30] MEDS: Metoprolol(XL)Succ 25 MG Tablet PO (09:00)
--- NOTE | 2023-10-30 12:39 | CASEMGMT ---
Social Work SW met with pt to discuss advance directives.? Pt confirms he has completed a living will and health care POA naming Radha Garcia, sister.? Pt notified that documents are not on file at [facility] and SW requested they be brought in for scanning into the EMR.? FRANTZ Murrell
--- NOTE | 2023-10-30 14:39 | CHAPLAIN ---
Type of Pastoral Visit _x__ Initial Visit ___ Follow-up Visit ___ On-call Visit ___ General Patient Visit ___ Spiritual Assessment ___ Family Conference ___ Bereavement ___ Rapid Response ___ Code Blue ___ Other (describe below) Pastoral Care Referral From _x__ Patient ___ Family ___ Nurse ___ Physician ___ Parts Order And Stock Clerk ___ Regional Tanker Truck Driver ___ Other (describe below) Sacrament/Intervention ___ Active listening ___ Anointing ___ Christian ___ Bereavement ___ Communion ___ Emelyn exploration ___ ___ Life review ___ Prayer ___ Reconciliation ___ Sacrament of Sick _x__ Supportive presence ___ Wedding ___ Other (describe below) Pastoral Comments offer of presence and support given to patient; pt reports on his catheter and wants RN to look at it which he then uses call button; pt says he has no needs other than that at this time; pt says thanks for asking but my sister is coming soon and I am doing fine;
[2023-10-30] MEDS: Ciprofloxacin 500 MG Tablet PO (22:16)
[2023-10-30] MEDS: Acetaminophen 325 MG Tablet PO (23:34)
[2023-10-31] VITALS (7 sets, daily range): BP systolic 100–144; BP diastolic 63–75; PULSE 48–88; RESP 16–18; TEMP 36.4–36.6; O2SAT 96–100
[2023-10-31] MEDS: Tamsulosin HCl 0.4 MG Capsule PO (09:15)
[2023-10-31] MEDS: Docusate Sodium 100 MG Capsule 200 MG PO ×2 (09:17→21:17)
[2023-10-31] MEDS: Ciprofloxacin 500 MG Tablet PO ×2 (09:17→21:18)
[2023-10-31] MEDS: Ketorolac 15 MG/ML Vial IV (12:57)
[2023-10-31] MEDS: 0.9% Saline Lock 10 ML Syringe IV (12:57)
[2023-11-01 02:30] VITALS: BP 157/74; PULSE 60; RESP 16; TEMP 36.8; O2SAT 99
[2023-11-01 08:00] VITALS: BP 125/83; PULSE 84; RESP 13; TEMP 36.4; O2SAT 99
--- NOTE | 2023-11-01 08:22 | PCM.PN.GU ---
Subjective Subjective Status post TURP urine is finally clear will MARVA Shah today and home after voids Objective Data Objective Data Vital Signs: Vital Signs Temp Pulse Resp BP Pulse Ox O2 Del Method 98.2 F 60 16 157/74 H 99 Room Air 11/01/23 02:30 11/01/23 02:30 11/01/23 02:30 11/01/23 02:30 11/01/23 02:30 11/01/23 02:30 Oxygen Delivery Method Room Air Weight: 63.1 kg Body Mass Index (BMI) 25.4 Intake & Output: Intake and Output for Last 24 Hours 10/30/23 10/31/23 11/01/23 23:59 23:59 23:59 Intake Total 6357.25 / 6357.25 1200 / 1200 Output Total 3500 / 3500 3150 / 3450 650 / 650 Balance 2857.25 / 2857.25 -1950 / -2250 -650 / -650 Lab / Micro Data 10/30/23 06:32 10/23/23 13:29
[2023-11-01 08:23] VITALS: PULSE 84
[2023-11-01] MEDS: Tamsulosin HCl 0.4 MG Capsule PO (08:23)
[2023-11-01] MEDS: Ciprofloxacin 500 MG Tablet PO (08:23)
[2023-11-01] MEDS: Metoprolol(XL)Succ 25 MG Tablet PO (08:23)
[2023-11-01] MEDS: Docusate Sodium 100 MG Capsule 200 MG PO (08:24)
== END 2023-11-01 16:35 | disposition home or self-care (01) ==
LOC: SDC 14:29 → MS3 14:29
PROVIDERS: Anesthesiology; Admitting Provider Urology; PCP Family Medicine; Referring Provider Urology; Visit Provider Urology
PROC: (CPT 52601; principal; 2023-10-29 12:20)
DX: N40.1 Benign prostatic hyperplasia with lower urinary tract symptoms (principal); N32.81 Overactive bladder; I10 Essential (primary) hypertension; N13.8 Other obstructive and reflux uropathy; R39.12 Poor urinary stream; R06.02 Shortness of breath; Z79.899 Other long term (current) drug therapy; I47.10 Supraventricular tachycardia, unspecified
CPT/HCPCS: 52601; 52287; 00914; 36415; 80048; 85025; 85027; 93005; 96361; 96365; 96366; 96375; 96376; 99221; J7030; J7120; A4216; G0378; J0585; J0744; J2405; J3490

== ENCOUNTER 2023-11-02 21:28 | Observation (INO) | payer OTHER, SELFPAY ==
[2023-11-02 21:29] VITALS: BP 144/81; PULSE 82; RESP 15; TEMP 36.3; O2SAT 98; BMI 25.6
--- NOTE | 2023-11-02 22:20 | EX.ED.GUMALE ---
HPI History of Present Illness Chief Complaint: Complaint Informant: patient and spouse/S.O. Pain Onset: Today Context: Gradual Onset Timing: Intermittent Current Severity: Mild Maximum Severity: Mild Narrative Narrative: 53-year-old male history of BPH. Cardiac murmur and prior cardiac ablation. Recent underwent a transurethral prostatectomy by Dr. Sha Ko here on Friday. Was discharged on I believe Friday. He developed gross hematuria and urinary retention went to another facility that was closer to his home and an 18 Kenyan Shah catheter put in was irrigated. They did a CAT scan which showed blood clots in his bladder. He was having more pain and discomfort Trouble urinating so he came to this department. Prior similar symptoms: No Recent Illness/Hospitalization: Yes PFSH [facility] Medical History Prostate disease Alcohol use Non-smoker Shortness of breath on exertion History of Holter monitoring History of stress test History of echocardiogram Hypertension Cardiology follow-up encounter History of CHF (congestive heart failure) History of irregular heartbeat Ventricular ectopy Abnormal EKG Ventricular septal defect (VSD), perimembranous Hypoplasia of aortic arch SVT (supraventricular tachycardia) Home Medications ?Medication ?Instructions ?Recorded ?Last Taken ?Type alfuzosin 10 mg tablet,extended 10 mg PO DAILY 12/27/22 Unknown History release 24 hr metoprolol succinate 25 mg 25 mg PO DAILY #30 tabs 08/11/23 10/29/23 06:30 Rx tablet,extended release 24 hr amoxicillin 500 mg tablet 2,000 mg PO .COMPLEX PRN PRN 10/21/23 Unknown History solifenacin 10 mg tablet 10 mg PO DAILY 11/02/23 Unknown History tamsulosin 0.4 mg capsule 0.4 mg PO BID 11/02/23 Unknown History Allergy/AdvReac Type Severity Reaction Status Date / Time sulfamethoxazole (From Allergy Rash Verified 11/02/23 21:34 Sulfamethoxazole-Trimethoprim) trimethoprim (From Allergy Rash Verified 11/02/23 21:34 Sulfamethoxazole-Trimethoprim) Sulfa (Sulfonamide AdvReac Intermediate Rash Verified 11/02/23 21:34 Antibiotics) Family History no significant family his Surgical History History of cardiac catheterization History of colonoscopy History of nasal surgery History of right and left heart catheterization (LHC) (~10/31/09) History of repair of congenital cleft palate History of radiofrequency ablation procedure for cardiac arrhythmia (~01/17/10) Social History household members: family Smoking Status: Never smoker alcohol intake: current details: occasional substance use type: does not use caffeine: Yes Type: carbonated beverages Number of servings: 3 ROS ROS ED ROS Narrative Gross hematuria. No recent illness. Review of Systems ROS Unobtainable: Denies due to encephalopathy Constitutional Constitutional ED: Denies chills or fever(s) Eyes Eyes: Denies blurry vision ENT ENT ED: Denies ear pain Cardiovascular Cardiovascular: Denies chest pain Respiratory/Chest Respiratory/Chest: Denies cough or dyspnea Gastrointestinal Gastrointestinal: Denies abdominal pain, constipation, diarrhea, melena, nausea or vomiting Genitourinary Genitourinary ED: Reports hematuria Musculoskeletal Musculoskeletal: Denies arthralgias or back pain Integumentary Denies abscess Neurologic Neurologic: Denies headache(s) Psychiatric Psychiatric: Denies anxiety or depression Endocrine Endocrinology: Denies polydipsia, polyphagia or polyuria Hematologic/Lymphatic Hematologic/Lymphatic: Denies easy bleeding, easy bruising or lymphadenopathy Allergic/Immunologic Allergic/Immunologic ED: Denies mouth swelling, tongue swelling or urticaria EXAM Physical Exam Narrative Exam Narrative: Open-evaluate male. Vital signs stable afebrile. H EENT exam unremarkable. Neck nontender. Lungs clear to auscultation. Heart regular rhythm rate about 84 systolic ejection murmur. Abdomen soft nondistended normal bowel sounds no peritoneal signs. External exam 18 Kenyan Shah catheter gross blood in the catheter. Moving all 4 extremities. Nontender no edema. He is awake alert. Const Vital Signs: 11/02/23 21:29 Temperature 97.4 F L Temperature Source Temporal Pulse Rate 82 Respiratory Rate 15 Blood Pressure 144/81 H Blood Pressure Mean 102 Pulse Ox 98 Oxygen Delivery Method Room Air Positive well nourished and well developed; Negative for cachectic, contractures or unkempt General Appearance ED: well developed and NAD; Negative for unkempt, cachectic, contractures or pallor Nutritional Appearance: Negative for cachectic HEENT Reports moist mucous membranes normocephalic and atraumatic; Negative for trauma or tenderness Eyes PERRL and EOMs intact bilaterally General Eye ED: Negative for pale conjunctiva or scleral icterus Neck no lymphadenopathy, supple and no JVD General: Negative for tenderness Resp normal respiratory effort and clear to auscultation bilaterally Effort and Inspection: Negative for retractions Auscultation: Negative for rales, rhonchi or wheezes Cardio regular rate, regular rhythm, S1 normal heart sound, S2 normal heart sound and no murmurs Rate: Negative for bradycardia or tachycardic Rhythm: Negative for abnormal rhythm Heart Sounds: Negative for other GI non-tender, non-distended and no masses Inspection: Negative for abdominal distention Auscultation: normoactive bowel sounds Palpation: soft; Negative for tender or guarding no CVA tenderness Bladder / Kidney Exam: No CVA tenderness Groin / Perineum Exam: Negative for edema or lesions Back/Spine no CVA tenderness General Back: Negative for CVA tenderness Cervical Spine: Negative for cervical spine tenderness Thoracic Spine / Upper Back: Negative for thoracic spinal tenderness Lumbar Spine / Lower Back: Negative for lumbar spinal tenderness Extremity normal to inspection General Extremety ED: Negative for edema, pulses abnormal or tenderness General Extremity: Negative for edema or pulses abnormal Neuro oriented x3, CN's II-XII intact bilaterally, moves all extremities and no focal motor deficits Sensorium / Orientation: alert, oriented to person, oriented to place and oriented to time; Negative for orientation impaired, confused, lethargic or stuporous Motor Exam: strength 5/5 throughout Psych mental status grossly normal Appearance: Negative for unkempt Attitude: No agitated Mood & Affect: Negative for depressed, anxious or tearful Thought Process: normal thought process Thought Content: normal thought content Attention / Concentration: Negative for other Skin General Skin Exam: Negative for jaundice or pallor Lesions: no lesions Rashes: no rashes Trauma: Negative for abrasion or laceration MDM MDM MDM Narrative Medical decision making narrative: 53-year-old male status post recent TURP for BPH. Having gross hematuria and urinary retention. Went to a hospital in [place]. An 18 Kenyan Shah placed and was irrigated. Again difficulty at night and came here. I spoke to Dr. Declan Ko. We discussed patient's care and the current Shah catheter is in place. Will admit the patient for further evaluation and most likely surgery tomorrow to determine where the bleeding is coming from and possible surgical repair. Patient family are comfortable with the plan. History & Record Review Discussion w/independent historian: Patient and Family Additional record(s) reviewed:: Prior inpatient record, Prior outpatient record, Prior ED visit and Prior labs Discharge Plan Triage Chief Complaint: Complaint ED Provider: Zaire Mederos Dx/Rx/DC Orders Clinical Impression: Gross hematuria, Acute urinary retention, Hx of transurethral resection of prostate Prescriptions: No Action alfuzosin 10 mg tablet extended release 24 hr 10 mg PO DAILY Patient Comments: TAKE ONE TABLET BY MOUTH EVERY DAY tamsulosin 0.4 mg capsule 0.4 mg PO BID solifenacin 10 mg tablet 10 mg PO DAILY amoxicillin 500 mg tablet 2,000 mg PO .COMPLEX PRN (Reason: PRN) Rx Instructions: 2,000 mg orally 1 hour prior to dental procedure; PRN; metoprolol succinate 25 mg tablet extended release 24 hr 25 mg PO DAILY Qty: 30 12RF Primary Care Provider: Modesto Conway Referrals: Modesto Conway MD [Primary Care Provider] - Print Language: Tanzanian Disposition Disposition: Acute Care Hospital [facility]
[2023-11-02 22:26] VITALS: BP 140/68; PULSE 77; RESP 16; TEMP 36.3; O2SAT 98
[2023-11-02 23:20] VITALS: BMI 25.4
[2023-11-03] VITALS (14 sets, daily range): BP systolic 113–158; BP diastolic 60–102; PULSE 82–100; RESP 16–18; TEMP 36.7–37.3; O2SAT 94–100; BMI 25.4
[2023-11-03] MEDS: Cefazolin 1 GM/50 ML BAG IV ×4 (00:35→22:42)
[2023-11-03] MEDS: 0.9% Normal Saline (1000mL) 1,000 ML 50 ML IV ×2 (00:35→14:42)
--- NOTE | 2023-11-03 05:55 | EKG12_ITS ---
Test Reason : CP Blood Pressure : / mmHG Vent. Rate : 090 BPM Atrial Rate : 090 BPM P-R Int : 186 ms QRS Dur : 110 ms QT Int : 384 ms P-R-T Axes : 021 -62 033 degrees QTc Int : 469 ms Normal sinus rhythm with sinus arrhythmia Possible Left atrial enlargement Left axis deviation Poor R wave progression Abnormal ECG When compared with ECG of 03-NOV-2023 04:56, MANUAL COMPARISON REQUIRED, DATA IS UNCONFIRMED Confirmed by Sukumar Candelario ([id number]), supervising editor news reel RACHID MARTINEZ ([id number]) on 11/10/2023 1:32:07 PM Referred By: Confirmed By:Sukumar Candelario
[2023-11-03 06:30] LABS: Absolute Lymphocyte Count 1.03 X10^3/uL (0.83-4.51); Absolute Neutrophil Count 2.2 X10^3/uL (2.0-7.7); Basophil# 0.03 X10^3/uL; Basophil% 0.8 % (0-1); Eosinophil# 0.07 X10^3/uL; Eosinophils% 1.9 % (0-5); Hematocrit 29.2 % (40-54); Hemoglobin 10.3 g/dL (13.0-16.5); Lymphocyte # 1.03 X10^3/ul (0.83-4.51); Lymphocyte % 27.8 % (19-41); Mean Corp Hgb Conc 35.3 g/dL (32-36); Mean Platelet Vol. 9.3 fl (6.2-12.0); Monocyte# 0.38 X10^3/uL; Monocyte% 10.2 % (0-10); NRBC Flagged by Analyzer 0 % (0-5); Neutrophil # 2.19 X10^3/uL (2.7-7.7); Platelet Count 163 K/mm3 (150-450); RBC Distribution Width CV 12.8 % (11.6-14.6); RBC Distribution Width SD 41.5 fl (35.1-43.9); Red Blood Count 3.32 M/mm3 (4.6-6.2); White Blood Count 3.7 K/mm3 (4.4-11.0)
[2023-11-03 06:47] LABS: Anion Gap 7 (5-15); BUN 7 mg/dL (7-18); BUN/Creat Ratio 9.5 RATIO (10-20); Calcium,Total 8.7 mg/dL (8.5-10.1); Chloride 109 mmol/L (98-107); Creatinine, Serum 0.74 mg/dL (0.70-1.30); EST Glomerular Filtration Rate 117 mL/min (>60); Est Glom Filt Rate - Afr Amer 141 mL/min (>60); Estimated Creatinine Clearance 87.11 ml/min; Glucose 102 mg/dL (74-106); Potassium 3.5 mmol/L (3.5-5.1); Sodium Level 140 mmol/L (136-145)
--- NOTE | 2023-11-03 08:45 | HP.PCM_ITS ---
HPI - General General Date of Admission: 11/02/23 Date of Service: 11/02/23 Chief Complaint: Postop bleeding from TURP HPI Narrative HUY CHOWDHURY, is a 53 M who presents to us the hospital or he has significant blood clots and bleeding he went home without a catheter but developed tension of urine with blood clots oriented back to surgery evacuate the blood clots and cauterize the bleeder. [facility] Medical History Prostate disease Alcohol use Non-smoker Shortness of breath on exertion History of Holter monitoring History of stress test History of echocardiogram Hypertension Cardiology follow-up encounter History of CHF (congestive heart failure) History of irregular heartbeat Ventricular ectopy Abnormal EKG Ventricular septal defect (VSD), perimembranous Hypoplasia of aortic arch SVT (supraventricular tachycardia) Home Medications ?Medication ?Instructions ?Recorded ?Last Taken ?Type alfuzosin 10 mg tablet,extended 10 mg PO DAILY 12/27/22 Unknown History release 24 hr metoprolol succinate 25 mg 25 mg PO DAILY #30 tabs 08/11/23 10/29/23 06:30 Rx tablet,extended release 24 hr amoxicillin 500 mg tablet 2,000 mg PO .COMPLEX PRN PRN 10/21/23 Unknown History solifenacin 10 mg tablet 10 mg PO DAILY 11/02/23 Unknown History tamsulosin 0.4 mg capsule 0.4 mg PO BID 11/02/23 Unknown History Allergy/AdvReac Type Severity Reaction Status Date / Time sulfamethoxazole (From Allergy Rash Verified 11/02/23 21:34 Sulfamethoxazole-Trimethoprim) trimethoprim (From Allergy Rash Verified 11/02/23 21:34 Sulfamethoxazole-Trimethoprim) Sulfa (Sulfonamide AdvReac Intermediate Rash Verified 11/02/23 21:34 Antibiotics) Family History no significant family his Surgical History History of cardiac catheterization History of colonoscopy History of nasal surgery History of right and left heart catheterization (LHC) (~10/31/09) History of repair of congenital cleft palate History of radiofrequency ablation procedure for cardiac arrhythmia (~01/17/10) Social History household members: family Smoking Status: Never smoker alcohol intake: current details: occasional substance use type: does not use caffeine: Yes Type: carbonated beverages Number of servings: 3 Vital Signs Vital Signs Vital Signs: 11/02/23 21:29 11/02/23 22:26 11/03/23 00:00 Temperature 97.4 F L 97.4 F L Temperature Source Temporal Pulse Rate 82 77 Respiratory Rate 15 16 Respiratory Effort Normal Respiratory Depth Normal Respiratory Pattern Normal Blood Pressure 144/81 H 140/68 H Blood Pressure Mean 102 92 Blood Pressure Source Blood Pressure Position Blood Pressure Location Pulse Ox 98 98 100 Oxygen Delivery Method Room Air Room Air 11/03/23 00:08 11/03/23 06:00 Temperature 98.8 F 98.8 F Temperature Source Oral Oral Pulse Rate 86 88 Respiratory Rate 16 16 Respiratory Effort Respiratory Depth Respiratory Pattern Blood Pressure 123/75 H 122/75 H Blood Pressure Mean 91 90 Blood Pressure Source Monitor Monitor Blood Pressure Position Semi-Fowlers Semi-Fowlers Blood Pressure Location Right Arm Right Arm Pulse Ox 100 100 Oxygen Delivery Method Room Air Room Air Weight Weight: 63.231 kg Body Mass Index (BMI) 25.4 Results Lab / Micro Data 11/03/23 05:45 11/03/23 05:45 Labs: Laboratory Results - last 24 hr 11/03/23 05:45: WBC 3.7 L, RBC 3.32 L, Hgb 10.3 L, Hct 29.2 L, MCV 88.0, MCH 31.0, MCHC 35.3, RDW Std Deviation 41.5, RDW Coeff of Maritza 12.8, Plt Count 163, MPV 9.3, Immature Gran % (Auto) 0.300, Neut % (Auto) 59.0, Lymph % (Auto) 27.8, [place] % (Auto) 10.2 H, Eos % (Auto) 1.9, Baso % (Auto) 0.8, Absolute Neuts (auto) 2.2, Absolute Lymphs (auto) 1.03, Nucleated RBC % 0, Sodium 140, Potassium 3.5, Chloride 109 H, Carbon Dioxide 24.0, Anion Gap 7, BUN 7, Creatinine 0.74, Estim Creat Clear Calc 87.11, Est GFR (MDRD) Af Amer 141, Est GFR (MDRD) Non-Af 117, B UN/Creatinine Ratio 9.5 L, Glucose 102, Calcium 8.7
--- NOTE | 2023-11-03 09:45 | OP.PCM_ITS ---
Report of Operation Date of Procedure: 11/03/23 Pre-Operative Diagnosis: Gross hematuria postoperative bleeding Post-Operative Diagnosis: The same Surgery/Procedure Performed:: Cystoscopy occasional blood clots cauterization of bleeding in the bladder Description of Surgical Findings:: 53-year-old male who underwent a TURP procedure also biopsy the bladder comes in he is having significant bleeding had to have a three-way catheter placed and a lot of blood clots in the bladder were taken back to the operating room. Patient taken back to surgery underwent general anesthesia when inside the bladder with a 21 Latvian rigid cystourethroscope and clot evacuated out significant mount of hemorrhage within the bladder I then went back in with a 24 Latvian noncontinuous flow Olympus bipolar resectoscope and there was several areas of very thin friable mucosa in the back of the bladder on the right lateral wall and anterior wall that there were bleeding bleeding bleeding and oozing so these were cauterized to control the bleeding I then placed a three- way catheter in the bladder and started three-way irrigation is taken back to PACU in stable condition. Surgeon: Tyrel Ko Type of Anesthesia: General Drains: 22fr [address] way Admit VTE Documentation VTE Present on Admission: No VTE Mechan Device Prophylaxis: SCD's VTE Pharm Prophylaxis ordered?: No
[2023-11-03] MEDS: Morphine 2 MG/ML Syringe IV (11:20)
--- NOTE | 2023-11-03 11:24 | EKG12_ITS ---
Test Reason : AM EKG Blood Pressure : / mmHG Vent. Rate : 077 BPM Atrial Rate : 077 BPM P-R Int : 174 ms QRS Dur : 112 ms QT Int : 412 ms P-R-T Axes : 032 -61 030 degrees QTc Int : 466 ms Sinus rhythm with Premature atrial complexes Left axis deviation Abnormal ECG When compared with ECG of 23-OCT-2023 13:07, Premature atrial complexes are now Present Nonspecific T wave abnormality has replaced inverted T waves in Inferior leads Confirmed by ABBI RIVER, PRAVEENA ([id number]), communications editor RACHID MARTINEZ ([id number]) on 11/06/2023 6:39:58 AM Referred By: BABITA Confirmed By:LISSY GO MD
[2023-11-03 12:46] LABS: Troponin-I HS 8 pg/mL (3.0-78.0)
[2023-11-03] MEDS: Tamsulosin HCl 0.4 MG Capsule PO (18:04)
[2023-11-04 02:50] VITALS: BP 117/70; PULSE 79; RESP 18; TEMP 36.6; O2SAT 97
[2023-11-04] MEDS: Cefazolin 1 GM/50 ML BAG IV (06:06)
--- NOTE | 2023-11-04 07:47 | PCM.PN.GU ---
Subjective Subjective s/p evacuation of clots and cauterize bleeding continue CBI Objective Data Objective Data Vital Signs: Vital Signs Temp Pulse Resp BP Pulse Ox O2 Del Method 98 F 79 18 117/70 97 Room Air 11/04/23 02:50 11/04/23 02:50 11/04/23 02:50 11/04/23 02:50 11/04/23 02:50 11/04/23 02:50 Oxygen Delivery Method Room Air Weight: 63.231 kg Body Mass Index (BMI) 25.4 Intake & Output: Intake and Output for Last 24 Hours 11/02/23 11/03/23 11/04/23 23:59 23:59 23:59 Intake Total 1145.83 / 1145.83 250 / 250 Output Total 2700 / 2700 1400 / 1400 Balance -1554.17 / -1554.17 -1150 / -1150 Lab / Micro Data 11/03/23 05:45 11/03/23 05:45 Labs: Laboratory Results - last 24 hr 11/03/23 12:15: Troponin I High Sens 8
[2023-11-04 08:33] VITALS: BP 121/75; PULSE 73; RESP 16; TEMP 36.7; O2SAT 100
[2023-11-04 10:23] VITALS: PULSE 73
[2023-11-04] MEDS: Metoprolol(XL)Succ 25 MG Tablet PO (10:23)
[2023-11-04 14:01] VITALS: BP 116/71; PULSE 75; RESP 16; TEMP 36.6; O2SAT 98
--- NOTE | 2023-11-04 15:50 | CHAPLAIN ---
Type of Pastoral Visit _x__ Initial Visit ___ Follow-up Visit ___ On-call Visit ___ General Patient Visit ___ Spiritual Assessment ___ Family Conference ___ Bereavement ___ Rapid Response ___ Code Blue ___ Other (describe below) Pastoral Care Referral From _x__ Patient ___ Family ___ Nurse ___ Physician ___ Home Improvement Installer ___ Hooking Machine Operator ___ Other (describe below) Sacrament/Intervention _x__ Active listening ___ Anointing ___ Druze ___ Bereavement ___ Communion ___ Emelyn exploration ___ ___ Life review ___ Prayer ___ Reconciliation ___ Sacrament of Sick _x__ Supportive presence ___ Wedding ___ Other (describe below) Pastoral Comments patient remembers this insurance executive from his previous admission last week; pt had some complications but was treated quickly and sufficiently; pt is expecting to be discharged soon; pt states no other concerns at this time; pt is more talkative this time; pt says he is not particularly taoism but thanks this insurance executive for coming to see him
--- NOTE | 2023-11-04 16:26 | DCINST_ITS ---
Discharge Instructions Diet Discharge Diet: No restrictions Activity Discharge Activity: Return to Normal Activity and May Not Drive (while taking narcotic pain medications.) Dressing / Incision Call your doctor if you observe: Fever of 101 or Higher Follow Up Care Please Follow Up With: Tyrel Ko MD When: Call [phone] for an appointment Test Results: Test results from this visit will be discussed in further detail at your follow- up appointment, if applicable. Discharge Plan Admission Admit Date/Time: 11/02/23 22:16 Attending Provider: Tyrel Ko Primary Care Provider: Modesto Conway Discharge Orders/Prescriptions Prescriptions: No Action alfuzosin 10 mg tablet extended release 24 hr 10 mg PO DAILY Patient Comments: TAKE ONE TABLET BY MOUTH EVERY DAY tamsulosin 0.4 mg capsule 0.4 mg PO BID solifenacin 10 mg tablet 10 mg PO DAILY amoxicillin 500 mg tablet 2,000 mg PO .COMPLEX PRN (Reason: PRN) Rx Instructions: 2,000 mg orally 1 hour prior to dental procedure; PRN; metoprolol succinate 25 mg tablet extended release 24 hr 25 mg PO DAILY Qty: 30 12RF Referrals / Follow Up: Modesto Conway MD [Primary Care Provider] -
[2023-11-04] MEDS: Tamsulosin HCl 0.4 MG Capsule PO (16:51)
== END 2023-11-04 17:43 | disposition home or self-care (01) ==
LOC: ED 22:24 → MS3 11-03 06:48
PROVIDERS: Anesthesiology; Admitting Provider Urology; Emergency Provider Emergency Medicine; PCP Family Medicine; Visit Provider Urology
PROC: (CPT 52214; principal; 2023-11-03 09:15)
DX: N99.820 Postprocedural hemorrhage of a genitourinary system organ or structure following a genitourinary system procedure (principal); R31.0 Gross hematuria; I10 Essential (primary) hypertension; R33.9 Retention of urine, unspecified; R01.1 Cardiac murmur, unspecified; Z79.899 Other long term (current) drug therapy; Y83.6 Removal of other organ (partial) (total) as the cause of abnormal reaction of the patient, or of later complication, without mention of misadventure at the time of the procedure
CPT/HCPCS: 52001; 00910; 36415; 80048; 84484; 85025; 93005; 96365; 96366; 96375; 99221; 99283; J7030; G0378; J2405

== ENCOUNTER → 2024-02-12 | Outpatient (CLI) | payer OTHER, SELFPAY ==
--- NOTE | 2024-02-12 13:47 | ECHOD_ITS ---
Reason For Study: VSD AND DILATED AORTA Procedure This was a 2D Doppler, Color Flow transthoracic echocardiogram. Exam performed in department. Left Ventricle Normal LV size. Left ventricular systolic function is normal. The left ventricular ejection fraction is 60 %. Stage 1 diastolic dysfunction. No regional wall motion abnormalities noted. Right Ventricle Normal RV size. Normal systolic function. Atria Normal left atrium. Normal right atrium. Mitral Valve Bileaflet diffuse mitral valve thickening. Mild mitral valve prolapse. Mild-Moderate (1-2+) eccentric mitral valve insufficiency. Tricuspid Valve Normal tricuspid valve. Mild to moderate (1-2+) tricuspid valve insufficiency. Pulmonary artery systolic pressure is 50 mmHg. Aortic Valve Trisinus/trileaflet aortic valve. Pulmonic Valve Normal pulmonic valve. Great Vessels Mildly dilated aortic root. The pulmonary artery is normal size. Normal inferior vena cava. Pericardium/Pleural No pericardial effusion. MMode/2D Measurements & Calculations LVIDd: 6.3 cm IVSd: 0.95 cm LVOT diam: 2.0 cm LVIDs: 3.8 cm LVPWd: 0.78 cm LVOT area: 3.2 cm2 RVDd: 3.6 cm FS: 39.8 % LAV(MOD-bp): 60.1 ml LVAd ap4: 33.4 cm2 SV(MOD-sp4): 74.6 ml LAV(MOD-bp) Indexed: 36.6 ml/m2 LVLd ap4: 7.5 cm LAV(MOD-sp2): 76.9 ml EDV(MOD-sp4): 128.3 ml LAV(MOD-sp4): 44.8 ml EDV(sp4-el): 126.5 ml LVAs ap4: 19.7 cm2 LVLs ap4: 6.4 cm ESV(MOD-sp4): 53.7 ml ESV(sp4-el): 51.8 ml EF(MOD-sp4): 58.1 % EF(sp4-el): 59.1 % SV(sp4-el): 74.8 ml LA A4 area: 17.6 cm2 RA A4 area: 17.8 cm2 Time Measurements MV dec time: 0.23 sec Doppler Measurements & Calculations MV E max andrea: 40.0 cm/sec Lat Peak E' Andrea: 9.5 cm/sec Med Peak E' Andrea: 9.3 cm/sec MV A max andrea: 68.6 cm/sec E/E' lat: 4.2 E/E' med: 4.3 MV E/A: 0.58 Ao V2 max: 105.4 cm/sec LV V1 max: 90.9 cm/sec MV dec slope: 171.2 cm/sec2 Ao max P.4 mmHg LV V1 max P.3 mmHg Ao V2 mean: 76.6 cm/sec LV V1 mean P.8 mmHg Ao mean P.7 mmHg LV V1 mean: 62.3 cm/sec Ao V2 VTI: 21.2 cm LV V1 VTI: 17.9 cm AV (velocity ratio): 0.84 GUILLERMO(I,D): 2.7 cm2 GUILLERMO(V,D): 2.8 cm2 SV(LVOT): 57.6 ml PA V2 max: 79.3 cm/sec TR max andrea: 244.5 cm/sec PA max PG (full): 0.83 mmHg TR max P.5 mmHg ECHO/Echo Complete Interpretation Summary Normal LV size. Left ventricular systolic function is normal. The left ventricular ejection fraction is 60 %. Stage 1 diastolic dysfunction. Small membranous VSD. Mild to moderate (1-2+) tricuspid valve insufficiency. Mild mitral valve prolapse. Ordering Physician: Randall Krause Referring Physician: Randall Krause Performed By: Emili Burns and Student
== END | disposition home or self-care (01) ==
LOC: CVS 13:44
PROVIDERS: PCP Family Medicine; Referring Provider Nurse Practitioner Family; Visit Provider Nurse Practitioner Family
DX: I77.810 Thoracic aortic ectasia (principal); Q21.0 Ventricular septal defect
CPT/HCPCS: 93306

== ENCOUNTER → 2025-02-21 | Outpatient (CLI) | payer OTHER, SELFPAY ==
[2025-02-21 15:04] LABS: PSA,Total- Diagnostic 2.81 ng/mL (0.00-4.00)
== END | disposition home or self-care (01) ==
LOC: LAB 13:40
PROVIDERS: PCP Family Medicine; Referring Provider Urology; Visit Provider Urology
DX: N40.0 Benign prostatic hyperplasia without lower urinary tract symptoms (principal)
CPT/HCPCS: 36415; 84153